=== PATIENT | female | born 1990 | race Caucasian/White ===

== ENCOUNTER 2023-11-14 11:39 | Outpatient (CLI) | payer OTHER, SELFPAY ==
--- OUTSIDE RECORDS SUMMARY | 2023-11-14 11:44 | XMS_ITS | Clinical Summary ---
Author Organization [facility] Address [place], [place] [address] Care Team Providers Care Service Trainer Name Role Phone Winsome Mcmahon DO Primary Care Provider [phone] Allergies Active Allergy Reactions Criticality Noted Date Comments Adhesive Tape-Silicones Rash 08/17/2023 Penicillin V Potassium Hives 09/02/2022 Medications Medication Sig Dispensed Refills Start Date End Date Status vitamin D3-vitamin K2 1,250-200 mcg cap 1 tab(s) orally once a day Active lactobacillus combination no.4 (Probiotic) 3 billion cell cap Take by mouth. Active Active Problems Problem Noted Date Diagnosed Date Anxiety 09/02/2022 Chronic fatigue 09/02/2022 Vitamin D deficiency 09/02/2022 Autism 09/02/2022 Encounters Date Type Department Care Team Description 11/07/2023 Telephone [facility] [address] [place] [address] Winsome Mcmahon DO Referral (Psychiatry ) 09/05/2023 9:49 AM CDT - 09/05/2023 11:59 PM CDT Hospital Encounter [address] [place] [id number] Winsome Mcmahon DO Liver hemangioma 09/05/2023 Travel 08/23/2023 1:30 PM CDT Office Visit [facility] [address] [place] [address] Winsome Mcmahon DO Back Pain (right sided/lateral back pain); Follow Up (urgent care on 08/16, found to have ovarian cyst. Liver US f/u recommended due to Probable cavernous hemangioma in abd CT) 08/23/2023 Travel 08/17/2023 4:00 PM CDT Ancillary Procedure [facility] [address] [place] [address] 08/17/2023 1:50 PM CDT Ancillary Procedure [facility] [address] [place] [address] 08/17/2023 12:10 PM CDT Office Visit [facility] [place] [place] [phone] [place] Abdominal Pain (2 1/2 week history of right sided flank pain/lateral back pain. Onset yesterday of nausea. Onset today of lower abdomen cramping and sharp pain. Back pain has improved; nausea has resolved. Denies fever, epigastric discomfort. Last BM today.) 08/17/2023 Travel from Last 3 Months Social History Tobacco Use Types Packs/Day Years Used Date Smoking Tobacco: Never Passive Smoke Exposure: Never Smokeless Tobacco: Never Tobacco Cessation:Counseling Given: Not Answered Alcohol Use Standard Drinks/Week Comments Yes 0 (1 standard drink = 0.6 oz pur e alcohol) occasional PHQ-2 Answer Date Recorded PHQ-2 TOTAL SCORE 3 11/07/2023 Social Connections Answer Date Recorded Frequency of Communication with Friends and Fami ly 0 08/23/2023 Financial Resource Strain Answer Date R ecorded Difficulty of Paying Living Expenses 3 08/23/2023 Difficulty of Paying Living Expenses Not on file 08/23/2023 Food Insecurity Answer Date Recorded Worried About Running Out of Food in the Last Ye ar 1 08/23/2023 Transportation Needs Answer Date Record ed Lack of Transportation (Medical) 1 08/23/2023 Housing Stability Answer Date Recorded Unable to Pay for Housing in the Last Year 1 08/23/2023 Sex and Gender Information Value Date Recorded Sex Assigned at Not on file Gender Identity Not on file Sexual Orientation Not on file Obstetrics History Para Term AB IAB SAB Ectopic Multiple Livin g Live Births 0 0 0 0 0 0 0 0 0 0 0 Last Filed Vital Signs Vital Sign Reading Time Taken Comments Blood Pressure 108/62 08/23/2023 1:33 PM CDT Pulse 80 08/23/2023 1:33 PM CDT Temperature 36.7 ??C (98.1 ??F) 08/17/2023 12:24 PM C DT Respiratory Rate 20 08/17/2023 12:24 PM CDT Oxygen Saturation 99% 08/23/2023 1:33 PM CDT Inhaled Oxygen Concentration - - Weight 59.5 kg (131 lb 3.2 oz) 08/23/2023 1:33 P M CDT Height 165.9 cm (5' 5.32) 09/02/2022 8:54 AM CD T Body Mass Index 21.62 09/02/2022 8:54 AM CDT Plan of Treatment Upcoming Encounters Date Type Department Care Team (Late st Contact Info) Description 12/12/2023 8:30 AM CDT Office Visit [facility] [address] [place] [phone] Vikki Renteria, [employer] [address] [place] [phone] Health Maintenance Due Date Last Done Comments Tdap 11/20/2003 HIV for age 15-65 11/20/2007 Hepatitis C screening for ag e 18-79 2010 Tetanus booster 2012 Pap test for age 21-65 2013 BMI (ht and wt on same day) for age 18+ 09/03/2023 09/02/2022 Influenza for age 9-49 11/05/2023 Depression screening for age 12+ 11/06/2024 11/07/2023 COVID-19 vaccine series Completed 02/14/20 23, 06/11/2020, 05/21/2020 Pneumococcal series for age 6-64 Aged Out No longer eligible b ased on patient's age to complete this topic Procedures Procedure Name Priority Date/Time Associated Diagnosis Comments US ABDOMEN LIMITED LIVER Routine 09/05/2023 10:37 AM CDT Liver hemangioma SOYBEAN (F14) IGE Routine 08/23/2023 2:1 1 PM CDT Abdominal pain, generalized Chronic diarrhea SHRIMP (F24) IGE Routine 08/23/2023 2:11 PM CDT Abdominal pain, generalized Chronic diarrhea US PELVIS COMPLETE TA AND TV STAT 08/17/2023 3:09 PM CDT Lower abdominal pain CT ABDOMEN PELVIS W STAT 08/17/2023 2 :10 PM CDT Lower abdominal pain ISTAT CHEM 8 STAT 08/17/2023 1:36 PM CDT Cyst of right ovary URINE STAT 08/17/2023 1:33 PM CDT Cyst of right ovary UA W/ SEDIMENT EXAM REFLEXED PER CRITERIA STAT 08/17/2023 1:33 PM CDT Cyst of right ovary CBC WITH AUTO DIFFERENTIAL STAT 08/17/2023 1:32 PM CDT Cyst of right ovary CBC WITH AUTO DIFFERENTIAL STAT 08/17/2023 1:32 PM CDT Cyst of right ovary from Last 3 Months Results * US ABDOMEN LIMITED LIVER (09/05/2023 10:37 AM CDT) Anatomical Region Laterality Modality LIVER Ultrasound 09/05/2023 10:3 7 AM CDT Impressions 09/05/2023 10:48 AM CDT 1. ??Two homogeneous hyperechoic lesions within the liver with an imaging appearance suggestive of benign hemangioma, similar to the recent CT. No suspicious hepatic lesion is seen. Follow-up limited abdominal ultrasound in 6 months could be considered although likely benign given the appearance. Narrative 09/05/2023 10:48 AM CDT For Patients: As a result of the Century Cures Act, medical imaging exams and procedure reports are released immediately into your electronic medical record. You may view this report before your referring provider. If you have questions, please contact your health care provider. EXAM: US ABDOMEN LIMITED LIVER LOCATION: [facility] DATE: 09/05/2023 INDICATION: Indeterminate liver lesions. COMPARISON: CT of the abdomen 08/17/2023. TECHNIQUE: Limited abdominal ultrasound. FINDINGS: GALLBLADDER: Normal. No gallstones, wall thickening, or pericholecystic fluid. Negative sonographic Townsend's sign. BILE DUCTS: No biliary dilatation. The common duct measures 3 mm. LIVER: No suspicious hepatic lesion. Homogeneous hyperechoic focus in the right hepatic lobe laterally measuring 2.1 x 1.9 x 1.4 cm and, consistent with angioma. Similar homogeneous echogenic focus left hepatic lobe measuring 1.4 x 1.4 x 1.4 cm, likely an additional hemangioma. Normal hepatopedal directional flow in the main portal vein. SPLEEN: Normal spleen measuring 9.3 cm. No ascites. Procedure Note Matthew Neal MD - 09/05/2023 For Patients: As a result of the Century Cures Act, medical imagingexams and procedure reports are released immediately into your electronicmedical record. You may view this report before your referring provider.If you have questions, please contact your health care provider. EXAM: US ABDOMEN LIMITED LIVER LOCATION: [facility] DATE: 09/05/2023 INDICATION: Indeterminate liver lesions. COMPARISON: CT of the abdomen 08/17/2023. TECHNIQUE: Limited abdominal ultrasound. FINDINGS: GALLBLADDER: Normal. No gallstones, wall thickening, or pericholecysticfluid. Negative sonographic Townsend's sign. BILE DUCTS: No biliary dilatation. The common duct measures 3 mm. LIVER: No suspicious hepatic lesion. Homogeneous hyperechoic focus in theright hepatic lobe laterally measuring 2.1 x 1.9 x 1.4 cm and, consistentwith angioma. Similar homogeneous echogenic focus left hepatic lobemeasuring 1.4 x 1.4 x 1.4 cm, likely an additional hemangioma. Normalhepatopedal directional flow in the main portal vein. SPLEEN: Normal spleen measuring 9.3 cm. No ascites. IMPRESSION: 1. Two homogeneous hyperechoic lesions within the liver with an imagingappearance suggestive of benign hemangioma, similar to the recent CT. Nosuspicious hepatic lesion is seen. Follow-up limited abdominal ultrasoundin 6 months could be considered although likely benign given theappearance. Winsome Mcmahon DO US * SHRIMP (F24) IGE (08/23/2023 2:11 PM CDT) SHRIMP (F24) IGE <0.10 <=0.35 kU/L 08/24/2023 2:07 PM CDT [facility] Blood BLOOD SPECIMEN / Unknown Venipuncture / Unknown 08/23/2023 2:11 PM CDT 08/23/2023 2:12 PM CDT Winsome Mcmahon DO SEND OUTS Performing Organization Address [facility]/ZIP Co de Phone Number [facility] [address] [place] [id number], [place] * SOYBEAN (F14) IGE (08/23/2023 2:11 PM CDT) Pathologist [facility] SOYBEAN (F14) IGE <0.10 <=0.35 kU/L 08/24/2023 2:07 PM CDT [facility] Blood BLOOD SPECIMEN / Unknown Venipuncture / Unknown 08/23/2023 2:11 PM CDT 08/23/2023 2:12 PM CDT Winsome Mcmahon DO SEND OUTS Performing Organization Address [facility] Co de Phone Number [facility] [address] [address], [place] * US PELVIS COMPLETE TA AND TV (08/17/2023 3:09 PM CDT) Anatomical Region Laterality Modality Pelvis Ultrasound 08/17/2023 3:09 PM CDT Impressions 08/17/2023 3:12 PM CDT 1. ??Normal pelvic ultrasound. Incidental benign dominant follicle or functional cyst in the right ovary measuring 2.3 cm. Narrative 08/17/2023 3:12 PM CDT For Patients: As a result of the Century Cures Act, medical imaging exams and procedure reports are released immediately into your electronic medical record. You may view this report before your referring provider. If you have questions, please contact your health care provider. EXAM: US PELVIS COMPLETE TA AND TV LOCATION: [facility] DATE: 08/17/2023 INDICATION: Lower Abdominal Pain COMPARISON: CT of the abdomen pelvis 08/17/2023 TECHNIQUE: Transabdominal scans were performed. Endovaginal ultrasound was performed to better visualize the adnexa. FINDINGS: UTERUS: 8.5 x 2.7 x 4.1 cm. Normal in size and position with no masses. ENDOMETRIUM: 12 mm. Normal smooth endometrium. RIGHT OVARY: 4.4 x 3.1 x 2.7 cm. Normal with flow demonstrated in normal arterial duplex waveforms. Dominant follicle measures 2.2 cm and is anechoic and benign. LEFT OVARY: 1.8 x 1.8 x 2.3 cm. Normal with flow demonstrated and normal arterial duplex waveforms. No adnexal mass or significant pelvic fluid collection is seen. Procedure Note Matthew Neal MD - 08/17/2023 For Patients: As a result of the Cures Act, medical imagingexams and procedure reports are released immediately into your electronicmedical record. You may view this report before your referring provider.If you have questions, please contact your health care provider. EXAM: US PELVIS COMPLETE TA AND TV LOCATION: [facility] DATE: 08/17/2023 INDICATION: Lower Abdominal Pain COMPARISON: CT of the abdomen pelvis 08/17/2023 TECHNIQUE: Transabdominal scans were performed. Endovaginal ultrasound wasperformed to better visualize the adnexa. FINDINGS: UTERUS: 8.5 x 2.7 x 4.1 cm. Normal in size and position with no masses. ENDOMETRIUM: 12 mm. Normal smooth endometrium. RIGHT OVARY: 4.4 x 3.1 x 2.7 cm. Normal with flow demonstrated in normalarterial duplex waveforms. Dominant follicle measures 2.2 cm and isanechoic and benign. LEFT OVARY: 1.8 x 1.8 x 2.3 cm. Normal with flow demonstrated and normalarterial duplex waveforms. No adnexal mass or significant pelvic fluid collection is seen. IMPRESSION: 1. Normal pelvic ultrasound. Incidental benign dominant follicle orfunctional cyst in the right ovary measuring 2.3 cm. Mt [facility] US * CT ABDOMEN PELVIS W (08/17/2023 2:10 PM CDT) Anatomical Region Laterality Modality Abdomen, Pelvis, AORTA, LIVER, SPLEEN Computed Tomography 08/17/2023 2:10 PM CDT Impressions 08/17/2023 2:21 PM CDT 1. ??Right ovarian low-density lesion with mild heterogeneous internal density suggesting possible hemorrhagic cyst. Pelvic ultrasound is recommended for further characterization. 2. ??Probable cavernous hemangioma in the inferior right hepatic lobe. Nonemergent liver ultrasound is recommended for confirmation. US Pelvis < 1 Month, US Liver < 1 Month Narrative 08/17/2023 2:21 PM CDT For Patients: As a result of the Cures Act, medical imaging exams and procedure reports are released immediately into your electronic medical record. You may view this report before your referring provider. If you have questions, please contact your health care provider. EXAM: CT ABDOMEN PELVIS W LOCATION: [facility] DATE: 08/17/2023 INDICATION: Lower Abdominal Pain COMPARISON: None. TECHNIQUE: CT scan of the abdomen and pelvis was performed following injection of IV contrast. Multiplanar reformats were obtained. Dose reduction techniques were used. CONTRAST: Omnipaque 350 80ML FINDINGS: LOWER CHEST: Normal. HEPATOBILIARY: Low-density lesion in the inferior right hepatic lobe measuring 1.9 x 1.8 cm with discontinuous peripheral nodular enhancement, probable cavernous hemangioma (series 2, image 43). Additional low-density cyst or hemangioma in the left hepatic lobe anteriorly measuring 1.5 x 0.9 cm (series 2, image 25). No calcified gallstones or biliary dilatation. PANCREAS: Normal. SPLEEN: Normal. ADRENAL GLANDS: Normal. KIDNEYS/BLADDER: Right renal cyst warranting no dedicated follow-up. No urinary calculi or hydronephrosis. BOWEL: No obstruction or inflammatory change. Normal appendix. LYMPH NODES: Normal. VASCULATURE: Pelvic phleboliths. PELVIC ORGANS: Right ovarian low-density lesion with mild internal heterogeneity measuring 1.9 cm (series 2, image 103). MUSCULOSKELETAL: Normal. Procedure Note Tavo Seymour MD - 08/17/2023 For Patients: As a result of the Cures Act, medical imagingexams and procedure reports are released immediately into your electronicmedical record. You may view this report before your referring provider.If you have questions, please contact your health care provider. EXAM: CT ABDOMEN PELVIS W LOCATION: [facility] DATE: 08/17/2023 INDICATION: Lower Abdominal Pain COMPARISON: None. TECHNIQUE: CT scan of the abdomen and pelvis was performed followinginjection of IV contrast. Multiplanar reformats were obtained. Dosereduction techniques were used. CONTRAST: Omnipaque 350 80ML FINDINGS: LOWER CHEST: Normal. HEPATOBILIARY: Low-density lesion in the inferior right hepatic lobemeasuring 1.9 x 1.8 cm with discontinuous peripheral nodular enhancement,probable cavernous hemangioma (series 2, image 43). Additional low-densitycyst or hemangioma in the left hepatic lobe anteriorly measuring 1.5 x 0.9cm (series 2, image 25). No calcified gallstones or biliary dilatation. PANCREAS: Normal. SPLEEN: Normal. ADRENAL GLANDS: Normal. KIDNEYS/BLADDER: Right renal cyst warranting no dedicated follow-up. Nourinary calculi or hydronephrosis. BOWEL: No obstruction or inflammatory change. Normal appendix. LYMPH NODES: Normal. VASCULATURE: Pelvic phleboliths. PELVIC ORGANS: Right ovarian low-density lesion with mild internalheterogeneity measuring 1.9 cm (series 2, image 103). MUSCULOSKELETAL: Normal. IMPRESSION: 1. Right ovarian low-density lesion with mild heterogeneous internaldensity suggesting possible hemorrhagic cyst. Pelvic ultrasound isrecommended for further characterization. 2. Probable cavernous hemangioma in the inferior right hepatic lobe.Nonemergent liver ultrasound is recommended for confirmation. US Pelvis < 1 Month, US Liver < [address] * ISTAT CHEM 8 (SELECTED SITES ONLY) (08/17/2023 1:36 PM CDT) [facility] SODIUM, POCT 138 135 - 145 mmol/L 08/17/2023 1:42 PM CDT [facility] POTASSIUM, POCT 3.6 3.5 - 5.0 mmol/L 08/17/2023 1:42 PM CDT [facility] CHLORIDE, POCT 100 98 - 107 mmol/L 08/17/2023 1:42 PM CDT [facility] CO2,TOTAL, POCT 26 21 - 31 mmol/L 08/17/2023 1:42 PM CDT [facility] ANION GAP, POCT 16 5 - 18 1:42 PM CDT [facility] GLUCOSE, POCT 98 70 - 99 mg/dL 08/17/2023 1:42 PM CDT [facility] IONIZED CALCIUM, POCT 1.21 1.15 - 1.27 mmol/L 08/17/2023 1:42 PM CDT [facility] BUN, POCT 10 8 - 25 mg/dL 08/17/2023 1:42 PM CDT [facility] CREATININE, POCT 0.70 0.57 - 1.11 mg/dL 08/17/2023 1:42 PM CDT [facility] BUN/CREAT RATIO, POCT 14 10 - 20 08/17/2023 1:42 PM CDT [facility] eGFR >90 >90 mL/min/1.7 3m2 08/17/2023 1:42 PM CDT [facility] Comment:As of 2021, eG FR is calculated by the CKD-EPI creatinine equation without race adjustment. eGFR can be influenced by muscle mass, exercise, and diet. The reported eGFR is an estimation only and is only applicable if the renal function is stable. Blood BLOOD SPECIMEN / Unknown 08/17/2023 1:36 PM CDT 08/17/2023 1:41 PM CDT [facility] CHEMISTRY [place] [id number] [place] [address], * (ABNORMAL) UA W/ SEDIMENT EXAM REFLEXED PER CRITERIA (08/17/2023 1:33 PM CDT) COLOR Yellow Yellow Color 08/17/2023 1:37 PM CDT [facility] CLARITY Clear Clear Clarity 08/17/2023 1:37 PM CDT [facility] SPECIFIC GRAVITY,URINE <=1.005(A) 1.010, 1.015, 1.020, 1.025 08/17/2023 1:37 PM CDT [facility] PH,URINE 7.0 6.0, 7.0, 8.0, 5.5, 6.5, 7.5, 8.5 08/17/2023 1:37 PM CDT [facility] UROBILINOGEN, QUALITATIVE Normal Normal EU/dl 08/17/2023 1:37 PM CDT [facility] PROTEIN, URINE Negative Negative mg/dL 08/17/2023 1:37 PM CDT [facility] GLUCOSE, URINE Negative Negative mg/dL 08/17/2023 1:37 PM CDT [facility] KETONES,URINE Negative Negative mg/dL 08/17/2023 1:37 PM CDT [facility] BILIRUBIN,URI NE Negative Negative 08/17/2023 1:37 PM CDT [facility] OCCULT BLOOD,URINE Negative Negative 08/17/2023 1:37 PM CDT [facility] NITRITE Negative Negative 08/17/2023 1:37 PM CDT [facility] LEUKOCYTE ESTERASE Negative Negative 08/17/2023 1:37 PM CDT [facility] Urine URINE SPECIMEN / Unknown Non-Blood / Unknown 08/17/2023 1:33 PM CDT 08/17/2023 1:33 PM CDT [facility] URINE Performing Organization Address City/[facility]/ZIP Co de Phone Number [address] [place] [address], [place] [phone] * URINE (08/17/2023 1:33 PM CDT) ,URIN E Negative Negative 08/17/2023 1:37 PM CDT [facility] Urine URINE SPECIMEN / Unknown Non-Blood / Unknown 08/17/2023 1:33 PM CDT 08/17/2023 1:33 PM CDT Mt [facility] URINE Performing Organization Address City/[facility]/ZIP Co de Phone Number [address] [address], [place] [phone] * CBC WITH AUTO DIFFERENTIAL (08/17/2023 1:32 PM CDT) WHITE BLOOD COUNT 6.8 4.5 - 11.0 thou/cu mm 08/17/2023 1:36 PM CDT [facility] RED BLOOD COUNT 4.51 4.00 - 5.20 mil/cu mm 08/17/2023 1:36 PM CDT [facility] HEMOGLOBIN 13.7 12.0 - 16.0 g/dL 08/17/2023 1:36 PM CDT [facility] HEMATOCRIT 40.8 33.0 - 51.0 % 08/17/2023 1:36 PM CDT [facility] MCV 91 80 - 100 fL 08/17/2023 1:36 PM CDT [facility] MCH 30.4 26.0 - 34.0 pg 08/17/2023 1:36 PM CDT [facility] MCHC 33.6 32.0 - 36.0 g/dL 08/17/2023 1:36 PM CDT [facility] RDW 11.7 11.5 - 15.5 % 08/17/2023 1:36 PM CDT [facility] PLATELET COUNT 345 140 - 440 thou/cu mm 08/17/2023 1:36 PM CDT [facility] MPV 9.8 6.5 - 11.0 fL 08/17/2023 1:36 PM CDT [facility] % NEUT 65.1 % 08/17/2023 1:36 PM CDT [facility] % LYMPH 27.4 % 08/17/2023 1:36 PM CDT [facility] % MONO 6.5 % 08/17/2023 1:36 PM CDT [facility] % EOS 0.6 % 08/17/2023 1:36 PM CDT [facility] % BASO 0.4 % 08/17/2023 1:36 PM CDT [facility] ABSOLUTE NEUTROPHILS 4.4 1.7 - 7.0 thou/cu mm 08/17/2023 1:36 PM CDT [facility] ABSOLUTE LYMPHOCYTES 1.9 0.9 - 2.9 thou/cu mm 08/17/2023 1:36 PM CDT [facility] ABSOLUTE MONOCYTES 0.4 <0.9 thou/cu mm 08/17/2023 1:36 PM CDT [facility] ABSOLUTE EOSINOPHILS 0.0 <0.5 thou/cu mm 08/17/2023 1:36 PM CDT [facility] ABSOLUTE BASOPHILS 0.0 <0.3 thou/cu mm 08/17/2023 1:36 PM CDT [facility] Blood BLOOD SPECIMEN / Unknown Non-Lab Venipuncture / Unknown 08/17/2023 1:32 PM CDT 08/17/2023 1:32 PM CDT [facility] HEMATOLOGY Performing Organization Address [facility]/State/ZIP Co de Phone Number [facility] [address] [place] [address], from Last 3 Months Care Teams Service Trainer Relationship Specialty Start Date End Date Winsome Mcmahon DO [address] [place] [address] PCP - General Family Practice 09/02/22
--- OUTSIDE RECORDS SUMMARY | 2023-11-14 11:44 | XMS_ITS | Patient Health Record ---
Author Organization [facility] Address [address] [place] [address] Care Team Providers Care Cro Name Role Phone Rubia Hines Primary Care Provider [phone] Allergies Allergen (clinical drug ingredient) Drug/Non Drug Allergy documented on EMR Reaction Allergy Type Onset Date Status Penicillin Unknown Drug Allergy Active Reason For Referral No Information Medications Medication SIG (Take, Route, Frequency, Duration) Notes Start Date End Date Status Probiotic Active Ibuprofen PRN Active Social History Tobacco Use: Social History Observation Description Date Details (start date - stop date) Never Smoker NA - NA Tobacco Use/Smoking Question Answer Notes Are you a nonsmoker Problems Problem Type SNOMED Code ICD Code Onset Dates Problem Status W/U Status Risk Notes Problem [id number] Dysmenorrhea (N94.6) Active confirmed Problem Malignant tumor of ovary (131311885) 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
--- OUTSIDE RECORDS SUMMARY | 2023-11-14 11:44 | XMS_ITS | Patient Health Record ---
Author Organization [facility] Address [address] [id number] Care Team Providers Care Photographic Developer And Printer Name Role Phone SELECT, PROVIDER Primary Care Provider Unavailab le Allergies Allergen (clinical drug ingredient) Drug/Non Drug Allergy documented on EMR Reaction Allergy Type Onset Date Status penicillin V Penicillin V Potassium hives Drug Allergy Active Reason For Referral No Information Medications Medication SIG (Take, Route, Frequency, Duration) Notes Start Date End Date Status Vitamin D3 25 MCG (1000 UT) 1 tab(s) ora lly once a day Active Escitalopram Oxalate 10 MG 1 tab(s) oral ly once a day 10/01/2018 Active Immunizations Vaccine Route Administration Date Status Comme nts DTaP (2 mos through 6 yrs) Unknown 01/20/1993 Administe red DTaP (2 mos through 6 yrs) Unknown 03/19/1993 Administe red DTaP (2 mos through 6 yrs) Unknown 05/14/1993 Administe red DTaP (2 mos through 6 yrs) Unknown 05/31/1994 Administe red Hepatitis B through 19 yrs Unknown 1992 Administered Hepatitis B through 19 yrs Unknown 1992 Administered Hepatitis B through 19 yrs Unknown 05/14/1993 Administered Hib Unknown 01/20/1993 Administered Hib Unknown 03/19/1993 Administered Hib Unknown 05/14/1993 Administered Hib Unknown 05/31/1994 Administered Influenza 6 months and older WITH Preservative Unknown 12/04/2018 Administered Polio (History Only) Unknown 01/20/1993 Administered Polio (History Only) Unknown 03/19/1993 Administered Polio (History Only) Unknown 05/14/1993 Administered Polio (History Only) Unknown 11/07/1997 Administered Tdap (Boostrix 7 years & older ) IM Intramuscular 09/27/2017 Administered Varicella Unknown 01/22/1998 Administered Social History Tobacco Use: Social History Observation Description Date Details (start date - stop date) Never Smoker NA - NA Alcohol Screen Question Answer Notes Did you have a drink contain ing alcohol in the past year? Yes How often did you have a dri nk containing alcohol in the past year? Monthly or less (1 point) How many drinks did you have on a typical day when you were drinking in the past year? 1 or 2 (0 points) How often did you have six o r more drinks on one occasion in the past year? Never (0 points) Points 1 Interpretation Negative Tobacco Status Question Answer Notes I am: never smoker Problems Problem Type SNOMED Code ICD Code Onset Dates Problem Status W/U Status Risk Notes Problem 84305224 Anxiety (F41.9) Active confirmed Problem 698367672 Low back pain (M54.5) Active confirmed Problem 82513722 Vitamin D deficiency (E55.9) Active confirmed Problem 90202082 Other chronic pain (G89.29) Active confirmed Problem 01780766 Chronic fatigue (R53.82) Active confirmed Plan Of Treatment No Information Insurance Providers Payer Name Payer Address Payer Phone Subscriber Number Group Number Insured Name Patient Relationship to Insured Coverage Start Date Coverage End Date [employer] [address] [place] [phone] [id number] Hilda Leon Self - patient is the insured 7 Medical (General) History Medical History History ICD Code Depression/Anxiety (in remission) Surgical History Surgery Date(Month/Year) Adnoids removed 1997
--- NOTE | 2023-11-14 12:00 | CRLHL7_ITS ---
For Patients: As a result of the Century Cures Act, medical imaging exams and procedure reports are released immediately into your electronic medical record. You may view this report before your referring provider. If you have questions, please contact your health care provider. Indication: Abdominal pain Technique: Nuclear medicine hepatobiliary scan with gallbladder ejection fraction after the intravenous administration of 5.2 millicuries technetium 99 M Mebrofenin and 1.2 micrograms of CCK. Comparison: None Findings: Normal hepatic extraction and excretion of the radiopharmaceutical with prompt appearance of the common bile duct followed by the gallbladder and small bowel. There is no enterogastric reflux. Visually normal gallbladder contraction is identified. Calculated gallbladder ejection fraction is 76 percent. Impression: Normal study. Dictated by José Luis Cabezas MD @ 11/14/2023 2:16:50 PM (Electronically Signed)
== END 2023-11-14 11:40 | disposition home or self-care (01) ==
DX: R10.9 Unspecified abdominal pain (principal); E74.10 Disorder of fructose metabolism, unspecified; R19.7 Diarrhea, unspecified; M54.9 Dorsalgia, unspecified
CPT/HCPCS: 78227; A9537; J2805

== ENCOUNTER 2023-11-27 08:54 | Emergency (ER) | payer OTHER, SELFPAY ==
[2023-11-27 09:08] VITALS: BP 118/80; PULSE 62; RESP 18; TEMP 36.8; O2SAT 98; BMI 20.5
--- NOTE | 2023-11-27 09:46 | ED_ITS ---
HPI - Wound/Laceration General Chief Complaint: Laceration/Wound Stated Complaint: cut 2 fingers on right hand Time Seen by Provider: 11/27/23 09:31 Source: patient Mode of arrival: ambulatory Limitations: no limitations History of Present Illness HPI narrative: Patient is a 33-year-old female presenting to the emergency department for lacerations to her right 2nd and 3rd digits near the fingernail but not involv ing the fingernail. States this morning she accidentally cut herself on a can that was in the sink. States her last tetanus was 2018. States she is having difficulty getting the bleeding under control so came in to be evaluated. No other concerns noted. Related Data Previous Rx's ?Medication ?Instructions ?Recorded ondansetron 4 mg disintegrating 4 mg PO Q8H PRN nausea and 05/02/23 tablet vomiting #10 tabs Allergies Allergy/AdvReac Type Severity Reaction Status Date / Time Penicillins Allergy Unknown Rash Verified 11/27/23 09:12 adhesives Allergy Mild rash on Uncoded 11/27/23 09:12 skin Review of Systems Narrative: Pertinent systems reviewed and were negative unless stated in HPI PFSH PFSH Social History Smoking Status: Never smoker Do you use any of these nicotine containing products: None How often do you have a drink containing alcohol: monthly or less How often do you have six or more drinks on one occasion: Less than monthly AUDIT-C Alcohol total score: 2 Non-prescribed substance use: denies use Exam Narrative: Exam Narrative: Const: Well-nourished, Well-developed, in no distress Eyes: PERRL, no conjunctival injection, and symmetrical lids HENT: Atraumatic external nose and ears. Moist mucous membranes. Removed MSK:Extremities w/o deformity, Normal Active ROM Skin: Warm, Dry. Lacerations noted to the distal phalanx of the 2nd and 3rd digits. Laceration of the 2nd digit is right next to the nail and is about half a cm in length. Laceration to the 3rd digit this is similar location is about 0.75 cm in length. Neuro: Normal Muscle tone, No focal neurological deficits. Psych: Awake, Alert, & Oriented x3. Appropriate mood and affect. Const: Vital Signs, click to edit/add: Vital Signs - 24 hr 11/27/23 09:08 Temperature 98.3 F Pulse Rate [Pulse Oximeter] 62 Respiratory Rate 18 Blood Pressure [Le ft Upper Arm] 118/80 Pulse Oximetry 98 Oxygen Delivery Me thod Room Air Course Vital Signs Vital signs: Initial Vital Signs Temperature 98.3 F 11/27/23 09:08 Temperature Source Temporal Artery Scan 11/27/23 09:08 Pulse Rate 62 11/27/23 09:08 Respiratory Rate 18 11/27/23 09:08 Blood Pressure 118/80 11/27/23 09:08 Blood Pressure Mean 92 11/27/23 09:08 Pulse Oximetry 98 11/27/23 09:08 Oxygen Delivery Method Room Air 11/27/23 09:08 Vital Signs Temperature 98.3 F 11/27/23 09:08 Pulse Rate 62 11/27/23 09:08 Respiratory Rate 18 11/27/23 09:08 Blood Pressure 118/80 11/27/23 09:08 Pulse Oximetry 98 11/27/23 09:08 Oxygen Delivery Method Room Air 11/27/23 09:08 Temperature 98.3 F 11/27/23 09:08 Pulse Rate 62 11/27/23 09:08 Respiratory Rate 18 11/27/23 09:08 Blood Pressure 118/80 11/27/23 09:08 Pulse Oximetry 98 11/27/23 09:08 Oxygen Delivery Method Room Air 11/27/23 09:08 Medications Administered Medications: Generic Name Dose Route Start Last Admin Trade Name Freq PRN Reason Stop Dose Admin Lidocaine HCl 30 ml 11/27/23 09:09 11/27/23 09:55 Lidocaine 1 % Pf 30 Ml INJECTION 30 ml ONCE PRN Administration MDM - Wound/Laceration MDM Narrative Medical decision making narrative: Patient's mother 3-year-old female presenting for laceration to her 2nd 3rd fingers. Both lacerations were near the nail but did not involve the nail bed. The suturing was done. See procedure note. She tolerated the procedure well. No other concerns noted. Discharge Plan Discharge Clinical Impression: Laceration Patient Disposition: Home, Self-Care Condition: Stable Instructions: Finger Laceration (ED) Additional Instructions: Follow-up with your primary care provider or urgent care in the next 7 days to have the 6 sutures removed. For next 6 months, once sutures are removed, whenever you go outside put a dab of sunscreen over the laceration site to improve scar appearance. Topical antibiotics are not necessary at this time. Patient can shower but do not submerge the laceration until sutures are removed Prescriptions: No Action ondansetron 4 mg tablet,disintegrating 4 mg PO Q8H PRN (Reason: nausea and vomiting) Qty: 10 0RF Follow Up/Referrals: Provider,Not a Local [Primary Care Provider] - Stand Alone Forms: [facility] Info Instructions Procedures Laceration right 2nd finger: Name of person performing procedure: dEgardo Ramsay Site: hand (2nd finger) Side (If applicable): right Size (cm): 0.5 Description: linear and clean Depth: simple, single layer Local Anesthetic: lidocaine 1% (Digital nerve block) Amount of anesthesia used (mL): 2 Pre-repair: wound explored, irrigated extensively and deep structures intact Skin layer closed with: nylon Size (cm): 5-0 Number of sutures: 3 Technique: simple, interrupted Right 3rd finger: Name of person performing procedure: Edgardo P Devendra Site: hand (3rd finger) Side (If applicable): right Size (cm): 0.75 Description: linear and clean Depth: simple, single layer Local Anesthetic: lidocaine 1% (Digital nerve block) Amount of anesthesia used (mL): 2 Pre-repair: wound explored, irrigated extensively and deep structures intact Skin layer closed with: nylon Size (cm): 5-0 Number of sutures: 3 Technique: simple, interrupted
--- OUTSIDE RECORDS SUMMARY | 2023-11-27 09:53 | XMS_ITS | Patient Health Record ---
Author Organization [facility] Address [address] [place] [address] Care Team Providers Care Car Hostler Name Role Phone Rubia Hines Primary Care Provider Allergies Allergen (clinical drug ingredient) Drug/Non Drug [...] Problem Status W/U Status Risk Notes Problem 406907979 Dysmenorrhea (N94.6) Active confirmed Problem Malignant tumor of ovary (445141064) Ovarian cancer on right (C56.1) Active confirmed Plan Of Treatment No Information Insurance Providers Payer Name Payer Address Payer Phone Subscriber Number Group Number Insured Name Patient Relationship to Insured Coverage Start Date Coverage End Date [employer] [address] [place] [id number] Hilda Leon Self - patient is the insured Medical (General) History Surgical History Surgery Date(Month/Year) Adenoidectomy Fil[place] teeth Removal
--- OUTSIDE RECORDS SUMMARY | 2023-11-27 09:53 | XMS_ITS | Clinical Summary ---
Author Organization [facility] Address [place], [place] [address] Care Team Providers Care Horse Racing Manager Name Role Phone Winsome Mcmahon DO Primary Care Provider [phone] Allergies Active Allergy Reactions Criticality Noted Date [...] Type Department Care Team Description 11/07/2023 Telephone [facility] [address] [place] [address] Winsome Mcmahon DO Referral (Psychiatry ) 09/05/2023 9:49 AM CDT - 09/05/2023 11:59 PM CDT Hospital Encounter [facility] [place] [address] [place] [address] Winsome Mcmahon DO Liver hemangioma 09/05/2023 Travel from Last 3 Months Social History [...] Description 12/12/2023 8:30 AM CDT Office Visit [facility] [address] [place] [id number] Vikki Renteria, MINING ENGINEER [address] [place] [phone] Health Maintenance Due Date Last Done Comments Tdap 11/20/2003 HIV for age 15-65 11/20/2007 Hepatitis C screening for ag e 18-79 2010 Tetanus booster 2012 Pap test for age 21-65 2013 BMI (ht and wt on same day) for age 18+ 09/03/2023 09/02/2022 Influenza for age 9-49 11/05/2023 Depression screening for age 12+ 11/06/2024 11/07/2023 COVID-19 vaccine series Completed 02/14/20, 06/11/2020, 05/21/2020 Pneumococcal series for age 6-64 Aged Out No longer eligible b ased on patient's age to complete this topic Procedures Procedure Name Priority Date/Time Associated Diagnosis Comments US ABDOMEN LIMITED LIVER Routine 09/05/2023 10:37 AM CDT Liver hemangioma from Last 3 Months Results * US [...] EXAM: US ABDOMEN LIMITED LIVER LOCATION: [facility] DATE: 09/05/2023 INDICATION: Indeterminate liver lesions. COMPARISON: [...] provider. EXAM: US ABDOMEN LIMITED LIVER LOCATION: [facility] DATE: 09/05/2023 INDICATION: Indeterminate liver lesions. [...] benign given theappearance. Winsome Mcmahon DO US from Last 3 Months Care Teams Horse Racing Manager Relationship Specialty Start Date End Date Winsome Mcmahon DO [address] [place], [place] [id number] PCP - General Family Practice 09/02/22
--- OUTSIDE RECORDS SUMMARY | 2023-11-27 09:54 | XMS_ITS | Patient Health Record ---
Author Organization [facility] Address [address] [id number] Care Team Providers Care Director Religious Education Name Role Phone SELECT, PROVIDER Primary Care [...] Problem Status W/U Status Risk Notes Problem 40695434 Anxiety (F41.9) Active confirmed Problem 222475835 Low back pain (M54.5) Active confirmed Problem 06261593 Vitamin D deficiency (E55.9) Active confirmed Problem 91200873 Other chronic pain (G89.29) Active confirmed Problem 47954810 Chronic fatigue (R53.82) Active confirmed Plan Of Treatment No Information Insurance Providers Payer Name Payer Address Payer Phone Subscriber Number Group Number Insured Name Patient Relationship to Insured Coverage Start Date Coverage End Date [employer] [address] [place] [phone] [id number] Hilda Leon Self - patient is the insured 7 Medical (General) History Medical History History ICD Code Depression/Anxiety (in remission) Surgical History Surgery Date(Month/Year) Adnoids removed 1997
[2023-11-27] MEDS: LIDOCAINE 1 % PF 30 ML INJECTION (09:55)
== END 2023-11-27 11:14 | disposition home or self-care (01) ==
PROVIDERS: Emergency Provider Student in an Organized Health Care Education/Training Program
DX: S61.210A Laceration without foreign body of right index finger without damage to nail, initial encounter (principal); S61.212A Laceration without foreign body of right middle finger without damage to nail, initial encounter; W26.9XXA Contact with unspecified sharp object(s), initial encounter
CPT/HCPCS: 12001; 99282; 99283; J2001

== ENCOUNTER 2024-10-19 15:37 | Emergency (ER) | payer OTHER, SELFPAY ==
--- OUTSIDE RECORDS SUMMARY | 2024-09-12 10:00 | XMS_ITS ---
Author Organization [place] [employer] e Address [address] [place] [address] Care Team Providers Care Clinical Research Analyst Name Role Phone Mragaret Hinesi Primary Care Provider Jeremy Anthony Unavailable [phone] None, No PCP Unavailable Unavailable Medications Medication SIG (Take, Route, Frequency, Duration) Notes Start Date End Date Status Ibuprofen PRN Not-Taking clonazePAM 0.5 MG 1 tablet Orally Once a day Active buPROPion HCl 150 MG as directed Orally Active Probiotic Not-Taking Problems Problem Type SNOMED Code ICD Code Onset Dates Problem Status W/U Status Risk Notes Problem Chronic pain (51547081) Other chronic pain (G89.29) Active confirmed Encounters Encounter Location Date Provider Diagnosis [address] [id number] 09/12/2024 eJremy Anthony Pelvic floor dysfunction in female M62.89 ; IRENE (stress urinary incontinence, female) N39.3 ; Other chronic pain G89.29 ; Low back pain, unspecified M54.50 ; Fecal urgency R15.2 ; Fecal smearing R15.1 and Dyspareunia, female N94.10 Assessments Encounter Date Diagnosis (ICD Code) Assessment Notes Treatment Notes Treatment Clinical Notes Section Notes 09/12/2024 Pelvic floor dysfunction in female (ICD-10 - M62.89) The patient tolerated treatment with no adverse effects. She came for an initial PT visit for symptoms of pelvic floor muscle dysfunction related to IRENE, LBP, fecal urgency, fecal incontinence and dyspareunia. The patient was educated on the anatomy, physiology and etiology of the pelvic floor, pelvic organs, nervous system and intraabdominal pressure system and how it all relates to the patient's symptoms to incorporate awareness into her ADLs. Limited objective measures taken today due to increased time taken with subjective information gathering and education on immediate self care strategies for home application of status and symptom management. The patient's course of treatment was explained to her and her goals were set in place. The patient's questions were answered to her satisfaction and she had no questions or concerns at the end of her session. Overall she would greatly benefit from PT to address her current musculoskeletal imbalances so she can return to her PLOF. Further musculoskeletal objective measures will be performed at subsequent visits as indicated. 09/12/2024 IRENE (stress urinary incontinence, female) (ICD-10 - N39.3) The patient tolerated treatment with no adverse effects. She came for an initial PT visit for symptoms of pelvic floor muscle dysfunction related to IRENE, LBP, fecal urgency, fecal incontinence and dyspareunia. The patient was educated on the anatomy, physiology and etiology of the pelvic floor, pelvic organs, nervous system and intraabdominal pressure system and how it all relates to the patient's symptoms to incorporate awareness into her ADLs. Limited objective measures taken today due to increased time taken with subjective information gathering and education on immediate self care strategies for home application of status and symptom management. The patient's course of treatment was explained to her and her goals were set in place. The patient's questions were answered to her satisfaction and she had no questions or concerns at the end of her session. Overall she would greatly benefit from PT to address her current musculoskeletal imbalances so she can return to her PLOF. Further musculoskeletal objective measures will be performed at subsequent visits as indicated. 09/12/2024 Other chronic pain (ICD-10 - G89.29) The patient tolerated treatment with no adverse effects. She came for an initial PT visit for symptoms of pelvic floor muscle dysfunction related to IRENE, LBP, fecal urgency, fecal incontinence and dyspareunia. The patient was educated on the anatomy, physiology and etiology of the pelvic floor, pelvic organs, nervous system and intraabdominal pressure system and how it all relates to the patient's symptoms to incorporate awareness into her ADLs. Limited objective measures taken today due to increased time taken with subjective information gathering and education on immediate self care strategies for home application of status and symptom management. The patient's course of treatment was explained to her and her goals were set in place. The patient's questions were answered to her satisfaction and she had no questions or concerns at the end of her session. Overall she would greatly benefit from PT to address her current musculoskeletal imbalances so she can return to her PLOF. Further musculoskeletal objective measures will be performed at subsequent visits as indicated. 09/12/2024 Low back pain, unspecified (ICD-10 - M54.50) The patient tolerated treatment with no adverse effects. She came for an initial PT visit for symptoms of pelvic floor muscle dysfunction related to IRENE, LBP, fecal urgency, fecal incontinence and dyspareunia. The patient was educated on the anatomy, physiology and etiology of the pelvic floor, pelvic organs, nervous system and intraabdominal pressure system and how it all relates to the patient's symptoms to incorporate awareness into her ADLs. Limited objective measures taken today due to increased time taken with subjective information gathering and education on immediate self care strategies for home application of status and symptom management. The patient's course of treatment was explained to her and her goals were set in place. The patient's questions were answered to her satisfaction and she had no questions or concerns at the end of her session. Overall she would greatly benefit from PT to address her current musculoskeletal imbalances so she can return to her PLOF. Further musculoskeletal objective measures will be performed at subsequent visits as indicated. 09/12/2024 Fecal urgency (ICD-10 - R15.2) The patient tolerated treatment with no adverse effects. She came for an initial PT visit for symptoms of pelvic floor muscle dysfunction related to IRENE, LBP, fecal urgency, fecal incontinence and dyspareunia. The patient was educated on the anatomy, physiology and etiology of the pelvic floor, pelvic organs, nervous system and intraabdominal pressure system and how it all relates to the patient's symptoms to incorporate awareness into her ADLs. Limited objective measures taken today due to increased time taken with subjective information gathering and education on immediate self care strategies for home application of status and symptom management. The patient's course of treatment was explained to her and her goals were set in place. The patient's questions were answered to her satisfaction and she had no questions or concerns at the end of her session. Overall she would greatly benefit from PT to address her current musculoskeletal imbalances so she can return to her PLOF. Further musculoskeletal objective measures will be performed at subsequent visits as indicated. 09/12/2024 Fecal smearing (ICD-10 - R15.1) The patient tolerated treatment with no adverse effects. She came for an initial PT visit for symptoms of pelvic floor muscle dysfunction related to IRENE, LBP, fecal urgency, fecal incontinence and dyspareunia. The patient was educated on the anatomy, physiology and etiology of the pelvic floor, pelvic organs, nervous system and intraabdominal pressure system and how it all relates to the patient's symptoms to incorporate awareness into her ADLs. Limited objective measures taken today due to increased time taken with subjective information gathering and education on immediate self care strategies for home application of status and symptom management. The patient's course of treatment was explained to her and her goals were set in place. The patient's questions were answered to her satisfaction and she had no questions or concerns at the end of her session. Overall she would greatly benefit from PT to address her current musculoskeletal imbalances so she can return to her PLOF. Further musculoskeletal objective measures will be performed at subsequent visits as indicated. 09/12/2024 Dyspareunia, female (ICD-10 - N94.10) The patient tolerated treatment with no adverse effects. She came for an initial PT visit for symptoms of pelvic floor muscle dysfunction related to IRENE, LBP, fecal urgency, fecal incontinence and dyspareunia. The patient was educated on the anatomy, physiology and etiology of the pelvic floor, pelvic organs, nervous system and intraabdominal pressure system and how it all relates to the patient's symptoms to incorporate awareness into her ADLs. Limited objective measures taken today due to increased time taken with subjective information gathering and education on immediate self care strategies for home application of status and symptom management. The patient's course of treatment was explained to her and her goals were set in place. The patient's questions were answered to her satisfaction and she had no questions or concerns at the end of her session. Overall she would greatly benefit from PT to address her current musculoskeletal imbalances so she can return to her PLOF. Further musculoskeletal objective measures will be performed at subsequent visits as indicated. 09/12/2024 Other Treatment Plan: Frequency: weekly or bi weekly Duration: 8-12 visits Planned Interventions: therapeutic exercise, therapeutic activities, self care/home management, manual therapy, neuromuscular reeducation, modalities prn, urostym Plan for next visit: Perform PFM assessment & remaining assessment components with application of HEP as indicated. The patient tolerated treatment with no adverse effects. She came for an initial PT visit for symptoms of pelvic floor muscle dysfunction related to IRENE, LBP, fecal urgency, fecal incontinence and dyspareunia. The patient was educated on the anatomy, physiology and etiology of the pelvic floor, pelvic organs, nervous system and intraabdominal pressure system and how it all relates to the patient's symptoms to incorporate awareness into her ADLs. Limited objective measures taken today due to increased time taken with subjective information gathering and education on immediate self care strategies for home application of status and symptom management. The patient's course of treatment was explained to her and her goals were set in place. The patient's questions were answered to her satisfaction and she had no questions or concerns at the end of her session. Overall she would greatly benefit from PT to address her current musculoskeletal imbalances so she can return to her PLOF. Further musculoskeletal objective measures will be performed at subsequent visits as indicated. Plan Of Treatment Treatment Notes Assessment Notes Other Treatment Plan: Frequency: weekly or bi weekly Duration: 8-12 visits Planned Interventions: therapeutic exercise, therapeutic activities, self care/home management, manual therapy, neuromuscular reeducation, modalities prn, urostym Plan for next visit: Perform PFM assessment & remaining assessment components with application of HEP as indicated. Next Appt Details Follow Up: 1 Week, Reason: Provider Name:Esther carrera, 2024 08:45:00 AM, [address] [place], [place] [address], [address], [id number], Provider Name:Jeremy barton, 11/26/2024 11:30:00 AM, [address] [place], [place] [address] [facility], [address], [id number], Provider Name:Jeremy barton, 12/03/2024 01:45:00 PM, [address] [place], [place] [address] [address], [id number], Provider Name:Jeremy barton, 12/10/2024 01:45:00 PM, [address] [place], [place] [address], [address], [id number], Provider Name:Jeremy barton, 12/17/2024 01:45:00 PM, [address] [place] [address] [facility], [address], [id number], Provider Name:Esther Marroquin Johnny carrera, 12/24/2024 01:30:00 PM, [address] [place] [address], [address], [id number], Provider Name:Jeremy Cara Jay barton, 12/31/2024 01:45:00 PM, [address] [place], [place] [address] [facility], [address], [id number], Provider Name:Esther Marroquin Johnny carrera, 01/07/2025 01:30:00 PM, [address] [place] [address], [address], [id number], Provider Name:Oly Knight, 1 03/12/2024 01:30:00 PM, [address] [place], [phone], Progress Notes * Hilda SHARMA RDOB: (33 yo F)Acc No.[id number]:09/12/2024 Patient: Evangelina Hilda ARCE R Provider: Yovanny Anthony DPT :1990 A ge:33 Y S ex:Female Date:09/12/2024 Address:[address] [place], [place] [id number] Pcp:Rubia Hines Subjective: * Chief Complaints: * * HPI: S ubjective: Evaluation P roblem List: S UI,Low back pain,Fecal urgency,Fecal incontinence,Dysparunia R [place] [facility] [place] Number of Visits 1 F all risk: N o F anthony in the last 6 months: N o H as a fear of falling: N o L iving Situation: I ndependent Currently living with a friend, planning on getting her own apartment. P recautions: N one/free,High anxiety Does therapy and medication to manage anxiety. C ognition: O riented to person, place, and time P atient Goal: improve pelvic floor so that I can jump without being afraid of peeing myself and not need to run to the bathroom every time I need to poop V erbal subjective: P santosh reports a long history since childhood of IRENE incontinence most notable with things like jumping & sneezing. Also reports concerns related to fecal urgency incontinence that has been present the last couple years. Notes a history significant for rectal prolapse when she was very young (5 years old that was told resolved on it's own). Additionally patient notes pain with intimacy related functions with deeper penetration. 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 P ain: Y es P ain Scale (out of 10): 2 L ocation: L ow back D escription: A gracie C omorbidities that could influence POC: M ental illness Anxiety, ADHD, autism, depression. C hildbirth History: N one F requency of urination during the day: 0 -6X 4x/day N octuria: 0 -1X H ow long can you delay after urge to urinate:?Hours U sual amount of urine passed: M edium F requency of bowel movements per day: 1 F requency of bowel movements per week: 7 H ow long can you delay after bowel urge: M inutes Varies however may have extreme abdominal pain if so. F luid intake H20 (in cups): 5 F luid intake caffeine (in cups): 0 I ncontinence symptoms- urine leakage: d rops,0-2,per week,with exertion or straining I ncontinence symptoms- bowel leakage: S everal close calls but no actual fecal incontinence. P ads used in a 24 hour period: 0 P rolapse symptoms- heaviness: N o P rolapse symptoms- organ descent symptoms:?No O ther symptoms related to bowel/bladder dysfunction: A bdominal pain with strong bowel urges. T rouble initiating urine stream: N o T rouble emptying bladder completely: N o C onstant dribble of urine: N o T rouble feeling an urge: N o U rinary hesitancy/slow stream: N o C onstipation: N o 1x every couple of weeks H x of UTI: N o D ribbling after urination: N o T rouble holding back gas: Y es B lood in urine: N o S training to empty bladder: N o S training to empty bowels: N o Rarely H istory of childhood bladder problems Y es Lots of UTI's and urinary incontinence as a child. S exually active: N ot currently but has been in the past. P elvic Pain Marinoff Scale (0-3): H as had pain with deeper penetration in the past. * Medical History: * Medications: T aking clonazePAM 0.5 MG Tablet 1 tablet Orally Once a day , Taking buPROPion HCl 150 MG Tablet Extended Release as directed Orally , Not-Taking Probiotic , Not- Taking Ibuprofen , Notes to Pharmacist: PRN Objective: * Vitals: * Examination: E xam: PT Evaluation N o objective measurements performed D ue to extensive subjective assessment,Due to extensive time educating the patient P atient was verbally informed of the indications, contraindications, precautions, procedures, and risks for internal assessment and treatment of the pelvic floor. Patient verbally consented to the evaluation and treatment to be provided by the physical therapist. Therapeutic Interventions: * Therapeutic Interventions: 1 . P hysical Therapy Education : 25 Minutes: Performed with intent to reduce symptoms during daily activities and promote self-management;,Education on the anatomy, physiology and etiology of the pelvic floor, pelvic organs, nervous system and intraabdominal pressure system and how it all relates to the patient's symptoms to incorporate awareness into her ADL*Movement on the hour*Hydration & nutrition goals*MeditationHeadspace, Calm,*Take moments to breath, slow down, especially before/after transitions. Exercise : Minutes: Indicated to improve ROM, strengthening and relaxation of muscles according to findings in the Initial Evaluation: Manual Therapy : Minutes: To promote soft tissue and blood flow for mobility, improved healing and decreased pain: Neuro Re-education : Minutes: Indicated for pelvic floor awareness, recruitment and coordination and to create and improved brain/neurological/body connection: Evaluation : 20 Minutes: Completed the musculoskeletal evaluation including subjective and objective assessments and creation of POC: Therapeutic Activities : Minutes: Performed with intent to optimize functional movement related to the patient's condition: Assessment: * Physical Therapy Assessment: 1. F unctional Limitations Self care : The patient is not independent with a self care/home exercise program for symptom management 2. P hysical Therapy Diagnosis Musculoskeletal Patterns : Impaired Posture, Impaired Muscle Performance, Impaired Joint Mobility, Motor Function, Muscle Performance, and Range of Motion, Associated with, Connective Tissue Dysfunction 3. S hort Term Goals 4 weeks : The patient will be independent with the beginning stages of a HEP to promote self-care and healthy lifestyle habits as well as good progress towards her LTGsThe patient will report incontience from __0-2__ X per _wk___ to _0-2___X per __month___ to promote improved quality of lifeThe patient will report 50% less incontinence overall to promote improved quality of life.The patient will report 50% improvement in fecal urgency symptoms to promote improved bowel habitsPt will report performing 3 or more self cares on a daily basis in order to improve bowel function for more complete BMs 4. L rudolph Term Goals 6 weeks : The patient will report voiding every 2-3 hours to promote return to normal bladder functionThe patient will report __0-2__ instances of pain a week to promote tolerance to ADLsThe patient will report a scale of 0-1 on the Mairnoff scale to promote improved tolerance to intimacyThe patient will report __0-2__ instance of incontinence per month to promote return to PLOFThe patient will report daily bowel movements with a 3-4 rating on the Mobile Stool Scale to promote normal bowel habits. 8 weeks/2 months : The patient will be independent with self-management of symptoms and return to her PLOF. G ood * Assessment: 1. S UI (stress urinary incontinence, female) - N39.3 2 . P elvic floor dysfunction in female - M62.89 (Primary) 3 . O ther chronic pain - G89.29 ? 4 . L ow back pain, unspecified - M54.50 5 . F ecal urgency - R15.2 6. F ecal smearing - R15.1 7 . D yspareunia, female - N94.10? The patient tolerated treatm ent with no adverse effects. She came for an initial PT visit for symptoms of pelvic floor muscle dysfunction related to IRENE, LBP, fecal urgency, fecal incontinence and dyspareunia. The patient was educated on the anatomy, physiology and etiology of the pelvic floor, pelvic organs, nervous system and intraabdominal pressure system and how it all relates to the patient's symptoms to incorporate awareness into her ADLs. Limited objective measures taken today due to increased time taken with subjective information gathering and education on immediate self care strategies for home application of status and symptom management. The patient's course of treatment was explained to her and her goals were set in place. The patient's questions were answered to her satisfaction and she had no questions or concerns at the end of her session. Overall she would greatly benefit from PT to address her current musculoskeletal imbalances so she can return to her PLOF. Further musculoskeletal objective measures will be performed at subsequent visits as indicated. Plan: * Treatment: * Procedure Codes: 9 7161 PT EVAL LOW COMPLEX 20 MIN, Modifiers: GP , 88691 SELF CARE MNGMENT TRAINING, Units: 2.00 , Modifiers: GP * Follow Up: 1 Week * Images: Billing Information: * Visit Code: * Procedure Codes: 37960 PT EVAL LOW COMPLEX 20 MIN. Modifiers: GP [address]128 SELF CARE MNGMENT TRAINING. Units: 2.00. Modifiers: GP * Sign off status: Completed true * Provider: Yovanny Anthony DPT Date: 09/12/2024 Generated for Miguel norris/Tanya/Wilfredoitting on: 10/19/2024 03:39 PM CDT History and Physical Notes * HPI (History of Present Illness) Category Sub-Category Detail Notes Category Not es Subjective Evaluation Problem List:: S UI,Low back pain,Fecal urgency,Fecal incontinence,Dysparunia Ref[place]:: Oly [place] [facility] [place] Number of Visits: 1 Fall risk:: No Fallen in the last 6 months:: No Has a fear of falling:: No Living Situation:: Independent Currently living with a friend, planning on getting her own apartment. Precautions:: None/free,High anxiety Cruz s therapy and medication to manage anxiety. Cognition:: Oriented to pers on, place, and time Patient Goal:: improve pelvic floo r so that I can jump without being afraid of peeing myself and not need to run to the bathroom every time I need to poop Verbal subjective:: Patient reports a lo ng history since childhood of IRENE incontinence most notable with things like jumping & sneezing. Also reports concerns related to fecal urgency incontinence that has been present the last couple years. Notes a history significant for rectal prolapse when she was very young (5 years old that was told resolved on it's own). Additionally patient notes pain with intimacy related functions with deeper penetration. 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 Pain:: Yes Pain Scale (out of 10):: 2 Location:: Low back Description:: Aching Comorbidities that could inf luence POC:: Mental illness Anxiety, ADHD, autism, depression. Childbirth History:: None Frequency of urination durin g the day:: 0-6X 4x/day Nocturia:: 0-1X How long can you delay after urge to urinate:: Hours Usual amount of urine passed:: Medium Frequency of bowel movements per day:: 1 Frequency of bowel movements per week:: 7 How long can you delay after bowel urge:: Minutes Varies however may have extreme abdomina l pain if so. Fluid intake H20 (in cups):: 5 Fluid intake caffeine (in cups):: 0 Incontinence symptoms- urine leakage:: drops,0-2,per week,with exertion or straining Incontinence symptoms- bowel leakage:: S everal close calls but no actual fecal incontinence. Pads used in a 24 hour period:: 0 Prolapse symptoms- heaviness:: No Prolapse symptoms- organ judy cent symptoms:: No Other symptoms related to dee wel/bladder dysfunction:: Abdominal pain with strong bowel urges. Trouble initiating urine stream:: No Trouble emptying bladder completely:: No Constant dribble of urine:: No Trouble feeling an urge:: No Urinary hesitancy/slow stream:: No Constipation:: No 1x every couple of w eeks Hx of UTI:: No Dribbling after urination:: No Trouble holding back gas:: Yes Blood in urine:: No Straining to empty bladder:: No Straining to empty bowels:: No Rarely History of childhood bladder problems: Y es Lots of UTI's and urinary incontinence as a child. Sexually active:: Not currently but [place] s been in the past. Pelvic Pain Marinoff Scale (0-3):: Has h ad pain with deeper penetration in the past. Examination Category Sub-Category Detail Notes Category Not es Exam PT Evaluation No objective art surements performed: Due to extensive subjective assessment,Due to extensive time educating the patient Patient was verbally informed of the indications, contraindications, precautions, procedures, and risks for internal assessment and treatment of the pelvic floor. Patient verbally consented to the evaluation and treatment to be provided by the physical therapist.
--- OUTSIDE RECORDS SUMMARY | 2024-09-25 05:00 | XMS_ITS ---
Author Organization [facility] e Address [address] [place] [address] Care Team Providers Care Label Paster Name Role Phone Donny Rubia Primary Care Provider Jeremy Anthony Unavailable [phone] None, No PCP Unavailable Unavailable Medications Medication SIG (Take, Route, Frequency, Duration) Notes Start Date End Date Status clonazePAM 0.5 MG 1 tablet Orally Once a day Active Probiotic Not-Taking buPROPion HCl 150 MG as directed Orally Active Ibuprofen PRN Not-Taking Encounters Encounter Location Date Provider Diagnosis [address] [place], [place] [phone] 09/25/2024 Jeremy Anthony Pelvic floor dysfunction in female M62.89 ; IRENE (stress urinary incontinence, female) N39.3 ; Other chronic pain G89.29 ; Low back pain, unspecified M54.50 ; Fecal urgency R15.2 ; Fecal smearing R15.1 and Dyspareunia, female N94.10 Assessments Encounter Date Diagnosis (ICD Code) Assessment Notes Treatment Notes Treatment Clinical Notes Section Notes 09/25/2024 Pelvic floor dysfunction in female (ICD-10 - [...] symptoms to incorporate awareness into her ADLs. 09/25/24: Patient presents today with reported application of some improved healthy habits to optimize function and symptoms. She was receptive to application of orthopedic assessments as well as implementation of therapeutic exercises. Discussed performing PFM assessment next visit with application of further interventions as indicated. Patient was receptive to these recommendations. The patient's course of treatment was explained [...] be performed at subsequent visits as indicated. 09/25/2024 IRENE (stress urinary incontinence, female) (ICD-10 - [...] symptoms to incorporate awareness into her ADLs. 09/25/24: Patient presents today with reported application of some improved healthy habits to optimize function and symptoms. She was receptive to application of orthopedic assessments as well as implementation of therapeutic exercises. Discussed performing PFM assessment next visit with application of further interventions as indicated. Patient was receptive to these recommendations. The patient's course of treatment was explained [...] be performed at subsequent visits as indicated. 09/25/2024 Other chronic pain (ICD-10 - G89.29) The [...] symptoms to incorporate awareness into her ADLs. 09/25/24: Patient presents today with reported application of some improved healthy habits to optimize function and symptoms. She was receptive to application of orthopedic assessments as well as implementation of therapeutic exercises. Discussed performing PFM assessment next visit with application of further interventions as indicated. Patient was receptive to these recommendations. The patient's course of treatment was explained [...] be performed at subsequent visits as indicated. 09/25/2024 Low back pain, unspecified (ICD-10 - M54.50) [...] symptoms to incorporate awareness into her ADLs. 09/25/24: Patient presents today with reported application of some improved healthy habits to optimize function and symptoms. She was receptive to application of orthopedic assessments as well as implementation of therapeutic exercises. Discussed performing PFM assessment next visit with application of further interventions as indicated. Patient was receptive to these recommendations. The patient's course of treatment was explained [...] be performed at subsequent visits as indicated. 09/25/2024 Fecal urgency (ICD-10 - R15.2) The patient [...] symptoms to incorporate awareness into her ADLs. 09/25/24: Patient presents today with reported application of some improved healthy habits to optimize function and symptoms. She was receptive to application of orthopedic assessments as well as implementation of therapeutic exercises. Discussed performing PFM assessment next visit with application of further interventions as indicated. Patient was receptive to these recommendations. The patient's course of treatment was explained [...] be performed at subsequent visits as indicated. 09/25/2024 Fecal smearing (ICD-10 - R15.1) The patient [...] symptoms to incorporate awareness into her ADLs. 09/25/24: Patient presents today with reported application of some improved healthy habits to optimize function and symptoms. She was receptive to application of orthopedic assessments as well as implementation of therapeutic exercises. Discussed performing PFM assessment next visit with application of further interventions as indicated. Patient was receptive to these recommendations. The patient's course of treatment was explained [...] be performed at subsequent visits as indicated. 09/25/2024 Dyspareunia, female (ICD-10 - N94.10) The patient [...] symptoms to incorporate awareness into her ADLs. 09/25/24: Patient presents today with reported application of some improved healthy habits to optimize function and symptoms. She was receptive to application of orthopedic assessments as well as implementation of therapeutic exercises. Discussed performing PFM assessment next visit with application of further interventions as indicated. Patient was receptive to these recommendations. The patient's course of treatment was explained [...] be performed at subsequent visits as indicated. 09/25/2024 Other Treatment Plan: Frequency: weekly or bi [...] symptoms to incorporate awareness into her ADLs. 09/25/24: Patient presents today with reported application of some improved healthy habits to optimize function and symptoms. She was receptive to application of orthopedic assessments as well as implementation of therapeutic exercises. Discussed performing PFM assessment next visit with application of further interventions as indicated. Patient was receptive to these recommendations. The patient's course of treatment was explained [...] Reason: Provider Name:Esther carrera, 2024 08:45:00 AM, [facility], [address] [address], [place], [place], [phone], Provider Name:Jeremy malone, 11/26/2024 11:30:00 AM, [address] [place], [place] [address], [address] [address], [place], [place], [phone], Provider Name:Jeremy malone, 12/03/2024 01:45:00 PM, [address] [place], [place] [email or web address], [address] [address], [place], [place], [phone], Provider Name:Jeremy malone, 12/10/2024 01:45:00 PM, [address] [place], [place] [email or web address], [address], [phone], Provider Name:Jeremy Thompson oralia, 12/17/2024 01:45:00 PM, [address] [place], [place] [email or web address], [phone], Provider Name:Esther Ike carrera, 12/24/2024 01:30:00 PM, [address] [place], [place] [email or web address], [address], [phone], Provider Name:Jeremy Thompson oralia, 12/31/2024 01:45:00 PM, [address] [place], [place] [email or web address], [phone], Provider Name:Esther carrera, 01/07/2025 01:30:00 PM, [address] [place], [place] [email or web address], [phone], Provider Name:Oly Knight, 1 03/12/2024 01:30:00 PM, [address] [place], [phone], Progress Notes * Hilda SHARMA RDOB: (33 yo F)Acc No.[id number]:09/25/2024 Patient: Hilda BAEZA Provider: Yovanny Anthony DPT :1990 A ge:33 Y S ex:Female Date:09/25/2024 Address:[address] [place] [address] BASIA Malone [phone] Pcp:Rubia Hines Subjective: * Chief Complaints: * * HPI: S ubjective: Evaluation P sailaja List: S UI,Low back pain,Fecal urgency,Dysparunia R eferral: [place] achel [place] 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 Patient verbally consented to the evaluation and treatment to be provided by the physical therapist. Therapeutic Interventions: * Therapeutic Interventions: 1 . P hysical Therapy Education : 10 Minutes: Performed with intent to reduce symptoms during daily activities and promote self-management;,Review and recommendation to continue application of the following for improved function and management of symptoms.Education on the anatomy, physiology and etiology of the pelvic floor, pelvic organs, nervous system and intraabdominal pressure system and how it all relates to the patient's symptoms to incorporate awareness into her ADL*Movement on the hour - improve bowel motility, decrease PFM tension, decrease back pain.*Hydration & nutrition goals - stimulates bowel motility and supports optimal body function.*Meditation - reduce stress & consequently muscle tension and improve function.Headspace, Calm,*Take moments to breath, slow down, especially before/after transitions. Exercise : 25 Minutes: Indicated to improve ROM, strengthening and relaxation of muscles according to findings in the Initial Evaluation:*Orthopedic assessments with application of the following based on findings and reported symptoms.Performed & recommended as implementation as part of HEP.Verbal and tactile cues as needed to ensure correct form and application.Access Code: [email or web address]: [email or web address]: 09/25/2024Prepared by: Jeremy AceyExercises- Clamshell - 1 x daily - 4 x weekly - 2 sets - 10 reps - exhale hold*Cues to limit pelvic rotation- Supine Piriformis Stretch - 1-2 x daily - 7 x weekly - 1 sets - 3 reps - 5-6 slow breath cycles hold*Emphasis to feel stretch, not pain.- Seated Piriformis Stretch - 1 x daily - 7 x weekly - 3 sets - 10 repsOption if not performed supein.- Happy Baby with Pelvic Floor Lengthening - 1-2 x daily - 7 x weekly - 1 sets - 3 reps - 5-6 slow breath cycles hold*Emphasis on breathing to improve PFM relaxation and reduced tension.- Prone Press Up - 1-2 x daily - 6-7 x weekly - 2 sets - 10 reps*Promote extension due to increased flexion and work related tasks.- Child's Pose Stretch - 1-2 x daily - 7 x weekly - 1 sets - 3 reps - 5-6 slow breath cycles hold*Cues for breath and off loading to pelvic floor and for back. Manual Therapy : Minutes: To promote soft tissue and blood flow for mobility, improved healing and decreased pain: Neuro Re-education : Minutes: Indicated for pelvic floor awareness, recruitment and coordination and to create and improved brain/neurological/body connection: Therapeutic Activities : Minutes: Performed with intent [...] movements with a 3-4 rating on the [place] Stool Scale to promote normal bowel habits. 8 weeks/2 months : The patient will be independent with self-management of symptoms and return to her PLOF. G ood * Assessment: 1. P elvic floor dysfunction in female - M62.89 (Primary) 2 . S UI (stress urinary incontinence, female) - N39.3 3 . O ther chronic pain - [...] symptoms to incorporate awareness into her ADLs. 09/25/24: Patient presents today with reported application of some improved healthy habits to optimize function and symptoms. She was receptive to application of orthopedic assessments as well as implementation of therapeutic exercises. Discussed performing PFM assessment next visit with application of further interventions as indicated. Patient was receptive to these recommendations.? The patient's course of treatment was explained [...] Plan: * Treatment: * Procedure Codes: 9 7535 SELF CARE MNGMENT TRAINING, Modifiers: GP , 02296 THERAPEUTIC EXERCISES, Units: 2.00 , Modifiers: GP * Follow Up: 1 Week * Images: Billing Information: * Visit Code: * Procedure Codes: 04408 SELF CARE MNGMENT TRAINING. Modifiers: [place] 64079 THERAPEUTIC EXERCISES. Units: 2.00. Modifiers: GP * Sign off status: Completed true * Provider: Yovanny Anthony DPT Date: 09/25/2024 Generated for Miguel norris/Tanya/Wilfredoitting on: 10/19/2024 03:39 PM CDT History and Physical Notes * HPI (History of Present Illness) Category Sub-Category Detail Notes Category Not es Subjective Evaluation Problem List:: S UI,Low back pain,Fecal urgency,Dysparunia Referral:: Oly Knight [place] 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 Patient verbally consented to the evaluation and treatment to be provided by the physical therapist. Hip Strength: : Abduction:: 4/5 R,4/5 L Hip external rotation: 4-/5 R,4-/5 L Flexibility (documented in amount limite d): : Adductors:: within normal limits R,within normal limits L Hamstrings:: within normal limits R,within normal limits L Internal rotation at 90 deg: mild R,mild L External hip rotators:: mild L,mild R
--- OUTSIDE RECORDS SUMMARY | 2024-10-04 09:15 | XMS_ITS ---
Author Organization [facility] Address [address] [place] [address] Care Team Providers Care Electronic Health Records Specialist Name Role Phone Donny Rubia Primary Care Provider Jeremy Anthony Unavailable [phone] None, No PCP Unavailable Unavailable Esther Gutierrez Unavailable [phone] Medications Medication SIG (Take, Route, Frequency, Duration) Notes Start Date End Date Status clonazePAM 0.5 MG 1 tablet Orally Once a day Active Ibuprofen PRN Not-Taking Probiotic Not-Taking buPROPion HCl 150 MG as directed Orally Active Encounters Encounter Location Date Provider Diagnosis [address] [place], [place] [id number] 10/04/2024 Esther Gutierrez Pelvic floor dysfunction in female M62.89 ; IRENE (stress urinary incontinence, female) N39.3 ; Other chronic pain G89.29 ; Low back pain, unspecified M54.50 ; Fecal urgency R15.2 ; Fecal smearing R15.1 and Dyspareunia, female N94.10 Assessments Encounter Date Diagnosis (ICD Code) Assessment Notes Treatment Notes Treatment Clinical Notes Section Notes 10/04/2024 Pelvic floor dysfunction in female (ICD-10 - [...] symptoms to incorporate awareness into her ADLs. 10/04/24: Completed the PF muscle exam and she presents with increased tension and soreness globally. Performed gentle STM to her PF and she tolerated this well today with no immediate change to symptoms. Answered her questions to satisfaction. Overall she would greatly benefit from PT to address her current musculoskeletal imbalances so she can return to her PLOF. Further musculoskeletal objective measures will be performed at subsequent visits as indicated. 10/04/2024 IRENE (stress urinary incontinence, female) (ICD-10 - [...] symptoms to incorporate awareness into her ADLs. 10/04/24: Completed the PF muscle exam and she presents with increased tension and soreness globally. Performed gentle STM to her PF and she tolerated this well today with no immediate change to symptoms. Answered her questions to satisfaction. Overall she would greatly benefit from PT to address her current musculoskeletal imbalances so she can return to her PLOF. Further musculoskeletal objective measures will be performed at subsequent visits as indicated. 10/04/2024 Other chronic pain (ICD-10 - G89.29) The [...] symptoms to incorporate awareness into her ADLs. 10/04/24: Completed the PF muscle exam and she presents with increased tension and soreness globally. Performed gentle STM to her PF and she tolerated this well today with no immediate change to symptoms. Answered her questions to satisfaction. Overall she would greatly benefit from PT to address her current musculoskeletal imbalances so she can return to her PLOF. Further musculoskeletal objective measures will be performed at subsequent visits as indicated. 10/04/2024 Low back pain, unspecified (ICD-10 - M54.50) [...] symptoms to incorporate awareness into her ADLs. 10/04/24: Completed the PF muscle exam and she presents with increased tension and soreness globally. Performed gentle STM to her PF and she tolerated this well today with no immediate change to symptoms. Answered her questions to satisfaction. Overall she would greatly benefit from PT to address her current musculoskeletal imbalances so she can return to her PLOF. Further musculoskeletal objective measures will be performed at subsequent visits as indicated. 10/04/2024 Fecal urgency (ICD-10 - R15.2) The patient [...] symptoms to incorporate awareness into her ADLs. 10/04/24: Completed the PF muscle exam and she presents with increased tension and soreness globally. Performed gentle STM to her PF and she tolerated this well today with no immediate change to symptoms. Answered her questions to satisfaction. Overall she would greatly benefit from PT to address her current musculoskeletal imbalances so she can return to her PLOF. Further musculoskeletal objective measures will be performed at subsequent visits as indicated. 10/04/2024 Fecal smearing (ICD-10 - R15.1) The patient [...] symptoms to incorporate awareness into her ADLs. 10/04/24: Completed the PF muscle exam and she presents with increased tension and soreness globally. Performed gentle STM to her PF and she tolerated this well today with no immediate change to symptoms. Answered her questions to satisfaction. Overall she would greatly benefit from PT to address her current musculoskeletal imbalances so she can return to her PLOF. Further musculoskeletal objective measures will be performed at subsequent visits as indicated. 10/04/2024 Dyspareunia, female (ICD-10 - N94.10) The patient [...] symptoms to incorporate awareness into her ADLs. 10/04/24: Completed the PF muscle exam and she presents with increased tension and soreness globally. Performed gentle STM to her PF and she tolerated this well today with no immediate change to symptoms. Answered her questions to satisfaction. Overall she would greatly benefit from PT to address her current musculoskeletal imbalances so she can return to her PLOF. Further musculoskeletal objective measures will be performed at subsequent visits as indicated. 10/04/2024 Other Treatment Plan: Frequency: weekly or bi weekly Duration: 8-12 visits Planned Interventions: therapeutic exercise, therapeutic activities, self care/home management, manual therapy, neuromuscular reeducation, modalities prn, urostym Plan for next visit: Continue MT to PFM, perform remaining assessment components with application of HEP [...] symptoms to incorporate awareness into her ADLs. 10/04/24: Completed the PF muscle exam and she presents with increased tension and soreness globally. Performed gentle STM to her PF and she tolerated this well today with no immediate change to symptoms. Answered her questions to satisfaction. Overall she would greatly benefit from PT [...] modalities prn, urostym Plan for next visit: Continue MT to PFM, perform remaining assessment components with application of HEP as indicated. Next Appt Details Follow Up: 1 Week, Reason: Provider Name:Esther carrera, 2024 08:45:00 AM, [address] [place] [address], [id number], Provider Name:Jeremy barton, 11/26/2024 11:30:00 AM, [address] [place] [address], [id number], Provider Name:Jeremy barton, 12/03/2024 01:45:00 PM, [address] [place] [address], [id number], Provider Name:Jeremy barton, 12/10/2024 01:45:00 PM, [address] [place], [place] [address] [address], [id number], Provider Name:Jeremy barton, 12/17/2024 01:45:00 PM, [address] [place] [address], [id number], Provider Name:Esther carrera, 12/24/2024 01:30:00 PM, [address] [place] [address], [id number], Provider Name:Jeremy barton, 12/31/2024 01:45:00 PM, [address] [place] [address], [id number], Provider Name:Esther carrera, 01/07/2025 01:30:00 PM, [address] [place] [address], [id number], Provider Name:Oly Knight, 1 03/12/2024 01:30:00 PM, [address] [place], [phone], Progress Notes * Hilda SHARMA RDOB: (33 yo F)Acc No.[id number]:10/04/2024 Patient: Hilda BAEZA Provider: Alexi Gutierrez DPT :1990 A ge:33 Y S ex:Female Date:10/04/2024 Address:[address] [place] [address] [id number] Pcp:Rubia Hines Subjective: * Chief Complaints: * * HPI: S ubjective: 10/04/24: Pt reports feeling about the same. 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 P ain: Y es P ain Scale (out of 10): 2 L ocation: L ow back D escription: A gracie Farah omorbidities that could influence POC: M ental [...] Vitals: * Examination: E xam: PT Evaluation E xternal/Visual Perineal Exam : M uscle contraction response: n il S train response: b noemy P elvic Floor Internal Assessment : L saul 1-STP, bulbocavermosus, ischiocavernosus : S ensation: i ntact P ain: m ild,bilateral T ension: m ild,bilateral L saul 2-sphincter urethrovaginalis, compressor urethra, DTP : S ensation: i ntact P ain: m oderate,bilateral T ension: m oderate,bilateral L saul 3-levator ani, ischiococcygeus, obturator internus, piriformis : S ensation: i ntact P ain: m oderate,bilateral T ension: m oderate,bilateral P elvic Floor Strength (PERF) : P ower (out of 5): 1 R elaxation after contraction: d elayed P rolapse: n one P osture: r ounded shoulders H ip [...] 1 . P hysical Therapy Education : 0 Minutes: Performed with intent to reduce symptoms [...] slow down, especially before/after transitions. Exercise : 0 Minutes: Indicated to improve ROM, strengthening and relaxation of muscles according to findings in the Initial Evaluation:*Orthopedic assessments with application of the following based on findings and reported symptoms.Performed & recommended as implementation as part of HEP.Verbal and tactile cues as needed to ensure correct form and application.Access Code: [email or web address]: [email or web address]/Date: 09/25/2024Prepared by: Jeremy ShameyExercises- Clamshell - 1 x daily - 4 [...] floor and for back. Manual Therapy : 42 Minutes: To promote soft tissue and blood flow for mobility, improved healing and decreased pain:- completed the PF muscle exam and she presents with increased tension and mild to moderate soreness globally as noted above. Performed gentle STM to her PF in all three layers bilateral. Reports feeling referral to her lower back today with the palpation where she's experienced back pain in the past with no relief with treatments. Assessment: * Physical Therapy Assessment: 1. F [...] movements with a 3-4 rating on the [place] Stool Scale to promote normal bowel habits. 8 weeks/2 months : The patient will be independent with self-management of symptoms and return to her PLOF. : All goals ongoing, still early in the POC and no change to symptoms * Assessment: 1. P elvic floor dysfunction [...] symptoms to incorporate awareness into her ADLs. 10/04/24: Completed the PF muscle exam and she presents with increased tension and soreness globally. Performed gentle STM to her PF and she tolerated this well today with no immediate change to symptoms. Answered her questions to satisfaction. Overall she would greatly benefit from PT to address her current musculoskeletal imbalances so she can return to her PLOF. Further musculoskeletal objective measures will be performed at subsequent visits as indicated. Plan: * Treatment: * Procedure Codes: 9 7140 MANUAL THERAPY, Units: 3.00 , Modifiers: GP * Follow Up: 1 Week * Images: Billing Information: * Visit Code: * Procedure Codes: 87295 MANUAL THERAPY. Units: 3.00. 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 Patient verbally consented to the evaluation and treatment to be provided by the physical therapist. Muscle contraction response:: nil Strain response:: bulge Pelvic Floor Internal Assessment: : Layer 1-STP, bulbocavermosus, ischiocavernosus: : Sensation:: intact Pain:: mild,bilateral Tension:: mild,bilateral Layer 2-sphincter urethrovaginalis, compressor urethra, DTP: : Sensation:: intact Pain:: moderate,bilateral Tension:: moderate,bilateral Layer 3-levator ani, ischiococcygeus, obturator internus, piriformis: : Sensation:: intact Pain:: moderate,bilateral Tension:: moderate,bilateral Pelvic Floor Strength (PERF): : Power (out of 5):: 1 Relaxation after contraction:: delayed Prolapse:: none Posture:: rounded shoulders Hip Strength: : Abduction:: 4/5 R,4/5 L Hip external rotation: 4-/5 R,4-/5 L Flexibility (documented in amount limite d): : Adductors:: within normal limits R,within normal limits L Hamstrings:: within normal limits R,within normal limits L Internal rotation at 90 deg: mild R,mild L External hip rotators:: mild L,mild R
--- OUTSIDE RECORDS SUMMARY | 2024-10-19 15:39 | XMS_ITS | Clinical Summary ---
Author Organization [facility] Address [address] [place] [id number] Care Team Providers Care Extension Forester Name Role Phone Winsome Mcmahon Primary Care Provider [phone] Allergies Active Allergy Reactions Criticality Noted Date Comments Adhesive Tape-Silicones Rash 08/17/2023 Penicillin V Potassium Hives 09/02/2022 Medications lactobacillus combination no.4 (Probiotic) 3 billion cell cap Take by mouth. Active cholecalciferol, vitamin D3, (VITAMIN D3 ORAL) Take 2,000 Int'l Units/1.7m2 by mouth once daily. Active ondansetron (ZOFRAN ODT) 4 mg disintegrating tablet 4 Active buPROPion (Wellbutrin XL) 150 mg Extended-Release tabletIndications: MDD (major depressive disorder), recurrent episode, moderate (HC) Take 1 Tablet (150 mg) by mouth once daily. 90 Tablet 1 5 Active clonazePAM 0.5 mg tabletIndications: AVIVA (generalized anxiety disorder) Take 0.5-1 Tablet (0.25-0.5mg) by mouth one to two times daily if needed for Anxiety. 10 Tablet 1 5 Active albuterol HFA (PRO-AIR; VENTOLIN; PROVENTIL) 90 mcg/actuation inhalerIndications :Extrinsic asthma with acute exacerbation, unspecified asthma severity, unspecified whether persistent (HC) Inhale 1-2 Puffs by mouth every 4 hours if needed for Shortness Of Breath or Wheezing. 1 Each 3 5 Active predniSONE (DELTASONE) 20 mg tabletIndications: Extrinsic asthma with acute exacerbation, unspecified asthma severity, unspecified whether persistent (HC) Take 1 Tablet (20 mg) by mouth once daily with a meal for 5 days. 5 Tablet 5 10/21/19 25 Active Active Problems Problem Noted Date Diagnosed Date Anxiety 09/02/2022 Chronic fatigue 09/02/2022 Vitamin D deficiency 09/02/2022 Autism 09/02/2022 Encounters Date Type Department Care Team Description 10/18/2024 Travel 10/15/2024 10:30 AM CDT Office Visit [facility] [address] [place] [address] Ch[place] Cough (past couple months she has been experiencing a cough and chest tightness especially with the air quality/concerns for asthma.) 10/15/2024 Travel 10/10/2024 Travel 09/18/2024 7:30 AM CDT Office Visit [facility] [address] [place] [address] Maria Pineda PA Consult (Flank pain) 09/17/2024 Transcribe Orders [facility] [place] [phone] Oly Knight NP 09/17/2024 Travel 09/10/2024 8:30 AM CDT Office Visit [facility] [address] [place] [phone] Vikki Renteria NP Follow Up 09/10/2024 Travel 09/06/2024 Travel 08/06/2024 10:30 AM CDT Office Visit [facility] [address] [place] [phone] Vikki Renteria NP Follow Up 08/05/2024 Travel from Last 3 Months Immunizations Immunization Administration Dates Next Due COVID-19 vaccine (Moderna 100mcg/0.5mL) PF, MDV 02/17/2021 COVID-19 vaccine (Pfizer-Bio NTech 30mcg/0.3mL) 12YO+ BIVALENT PF, MDV 01/04/2022 DTaP 05/31/1994, 4,03/19/1993,1992 HIB PRP-OMP (PedvaxHIB) 05/31/1994,05/14,03/19/1993,1992 Hepatitis B (Peds) 05/14/1993,1992, 993 INFLUENZA, IIV3 PF (AGE >= 6 MO) 01/13/2024 Influenza, IIV3 (Age >=3 years) 11/08/2017 Influenza, IIV4 02/13/2023,02/18/2022,12/19/2020 Influenza, IIV4 (=>6mos) MDV 12/04/2018,10/31/19 17 Influenza,CCIIV4 PRESERV FREE 02/05/2020 Tdap 09/27/2017 Varicella Vaccine 01/22/1998 Family History Relation Name Status Comments Brother Alive Father Alive Mother Alive Social History Tobacco Use Types Packs/Day Years Used Date Smoking Tobacco: Never Passive Smoke Exposure: Never Smokeless Tobacco: Never Tobacco Cessation:Counseling Given: Not Answered Alcohol Use Standard Drinks/Week Comments Yes 0 (1 standard drink = 0.6 oz pur e alcohol) occasional PHQ-2 Answer Date Recorded PHQ-2 TOTAL SCORE 3 09/09/2024 Social Connections Answer Date Recorded Do you often feel lonely or isolated from those around you? 0 10/10/2024 Financial Resource Strain Answer Date R ecorded Difficulty of Paying Living Expenses 3 10/10/2024 Difficulty of Paying Living Expenses Not on file 10/10/2024 Food Insecurity Answer Date Recorded Do you worry your food will run out before you are able to buy more? 1 10/10/2024 Transportation Needs Answer Date Record ed Does lack of transportation keep you from medica l appointments? 1 10/10/2024 Does lack of transportation keep you from work, meetings or getting things that you need? 1 10/10/2024 Housing Stability Answer Date Recorded What is your housing situation today? 3 10/10/2024 Utilities Answer Date Recorded Do you have trouble paying f or utilities (for example, heat, electricity, water, phone)? 1 10/10/2024 Comments No Sex and Gender Information Value Date Recorded Sex Assigned at Not on file Legal Sex Female 11:40 AM CDT Gender Identity Not on file Sexual Orientation Not on file Travel History Travel Start Travel End [place] 09/19/2024 09/22/2024 Obstetrics History Para Term AB IAB SAB Ectopic Multiple Livin g Live Births 0 0 0 0 0 0 0 0 0 0 0 Last Filed Vital Signs Vital Sign Reading Time Taken Comments Blood Pressure 108/68 10/15/2024 10:36 AM CDT Pulse 78 10/15/2024 10:36 AM CDT Temperature 36.7 C (98 F) 12/04/2023 11:53 AM CDT Respiratory Rate 20 08/17/2023 12:24 PM CDT Oxygen Saturation 98% 10/15/2024 10:36 AM CDT Inhaled Oxygen Concentration - - Weight 54.1 kg (119 lb 3.2 oz) 10/15/2024 10:36 AM CDT Height 167.6 cm (5' 6) 02/12/2024 1:28 PM [employer] Body Mass Index 19.24 02/12/2024 1:28 PM [employer] Plan of Treatment Upcoming Encounters Date Type Department Care Team (Late st Contact Info) Description 10/23/2024 9:15 AM CDT Office Visit [facility] [address] [place] [address] Anthony Ivey MBBS [address] [place] [address] 11/05/2024 10:30 AM CDT Office Visit [facility] [address] [facility] [place] [phone] Vikki Renteria NP [address] [place] [address] Health Maintenance Due Date Last Done Comments HIV for age 15-65 11/20/2007 Hepatitis C screening for age 18-79 2010 Pap test for age 21-65 2013 Influenza Vaccine (#1) 2024 , 02/13/2023, 02/18/2022, Additional history exists BMI (ht and wt on same day) for age 18+ 02/11/2025 02/12/2024, 12/12/2023, 09/02/2022 Depression screening for age 12+ 09/10/2025 09/10/2024, 09/09/2024, 08/06/2024, Additional history exists Tetanus booster 09/28/2027 09/27/2017 Hepatitis B series for 19+ Completed 05/14, 1992, 1992 COVID-19 vaccine series Completed 01/13/20 24, 02/13/2023, 01/04/2022, Additional history exists Pneumococcal series for age 6-49 Aged Out No longer eligible based on patient's age to complete this topic Insurance [place] [id number] Care Teams Extension Forester Relationship Specialty Start Date End Date Winsome Mcmahon DO [address] [place] [address] PCP - General Family Practice 09/02/22
--- OUTSIDE RECORDS SUMMARY | 2024-10-19 15:40 | XMS_ITS | Patient Health Record ---
Author Organization [employer] Address [address] [place] [address] Care Team Providers Care Gas Operation Manager Name Role Phone Rubia Hines Primary Care Provider Jeremy Anthony Unavailable [phone] None, No PCP Unavailable Unavailable Esther Gutierrez Unavailable [phone] Oly Knight Unavailable [phone] Allergies Allergen (clinical drug ingredient) Drug/Non Drug Allergy documented on EMR Reaction Allergy Type Onset Date Status Penicillin Unknown Drug Allergy Active Results Component Value Reference Range Notes THINPREP TIS AND HPV mRNA E6 /E7 W/ REFLEX 16, 18/45HPV Reviewed date:08/30/2024 12:04:09 PM Interpretation:Normal Performing Lab:[id number] Julio Hicks Notes/Report: CLINICAL INFORMATION: Other high risk factor, specify LMP: 08/22/24 PREV. PAP: 2020 PREV. BX: NONE GIVEN SOURCE: Cervix, Endocer vix STATEMENT OF ADEQUACY: Satisfactory for evaluation. Endocervical/transformation zone component present. INTERPRETATION/RESULT: Cytology Results: Negative for intraepithelial lesion or malignancy. COMMENT: This Pap test has been evaluated with computer assisted technology. TRAP SETTER: ALPA DAVILA(ASCP) CT Screening location: [address] [address] CLIA:[id number] COMMENT EXPLANATORY NOTE: The Pap is a screening test for cervical cancer. It is not a diagnostic test and is subject to false negative and false positive results. It is most reliable when a satisfactory sample, regularly obtained, is submitted with relevant clinical findings and history, and when the Pap result is evaluated along with historic and current clinical information. HPV mRNA E6/E7 Not Detected Not Detected http://education.[employer].com/faq/HAE001h0 (This link if provided for information/ educational purposes only.) Methodology: Qa Lead-Mediated Amplification This assay detects E6/E7 viral messenger RNA (mRNA) from 14 high-risk HPV types (16,18,31,33,35,39,45,51,52,5 6,58,59,66,68). Cervical sources are required for HPV testing. If a vaginal source from a patient who has had a total hysterectomy with removal of cervix was submitted, please contact the testing laboratory for alternative testing options. For additional information, please refer to Reason For Referral Reason [facility] Colorectal Diagnosis 1 Rectal pressure (R19 .8) Diagnosis 2 Rectal prolapse (K62 .3) Referral Organization [facility] Referring Provider First Name Oly Referring Provider Last Name Eugene Referring Provider Speciality Nurse Prac titioner Referred Provider Specialty Colorectal S urgery General Notes Oly Knight 025 12:35:40 PM CDT > Please send referral to Colorectal at [facility]. Indication is rectal pressure and history of rectal prolapse. Thanks, RT DNP Clinical Notes Sharif Perez 025 10:13:10 AM > Referral faxed to [facility] at [phone] - pt notified via email and given number for scheduling Referral Priority Routine Medications Medication SIG (Take, Route, Frequency, Duration) Notes Start Date End Date Status clonazePAM 0.5 MG 1 tablet Orally Once a day Active Ibuprofen PRN Not-Taking Probiotic Not-Taking buPROPion HCl 150 MG as directed Orally Active Social History Tobacco Use: Social History Observation Description Date Details (start date - stop date) Never Smoker NA - NA Tobacco Use/Smoking Question Answer Notes Are you a nonsmoker Problems Problem Type SNOMED Code ICD Code Onset Dates Problem Status W/U Status Risk Notes Problem Chronic pain (93327289) Other chronic pain (G89.29) Active confirmed Problem Rectal prolapse (07903939) Rectal prolapse (K62.3) Active confirmed Problem Fecal urgency (42522206) Fecal urgency (R15.2) Active confirmed Problem Dysmenorrhea (065155131) Dysmenorrhea (N94.6) Active confirmed Problem Pain in female genitalia on intercourse (98310653) Dyspareunia, female (N94.10) Active confirmed Problem Female urinary stress incontinence (49484240) IRENE (stress urinary incontinence, female) (N39.3) Active confirmed Problem Pelvic floor dysfunction (272067784) Pelvic floor dysfunction (M62.89) Active confirmed Problem Pelvic floor weakness (N81.89) Active confirmed Problem Rectal pressure (R19.8) Active confirmed Problem Malignant tumor of ovary (646969747) Ovarian cancer on right (C56.1) Active confirmed Vital Signs Blood pressure diastolic 62 mm Hg 08/27/2024 Height 64.5 in 08/27/2024 Blood pressure systolic 106 mm Hg 08/27/2024 Weight 124.0 lbs 08/27/2024 BMI 20.95 kg/m2 08/27/2024 Encounters Encounter Location Date Provider Diagnosis [address] [id number] 10/04/2024 Esther Gutierrez Pelvic floor dysfunction in female M62.89 ; IRENE (stress urinary incontinence, female) N39.3 ; Other chronic pain G89.29 ; Low back pain, unspecified M54.50 ; Fecal urgency R15.2 ; Fecal smearing R15.1 and Dyspareunia, female N94.[address] [id number] 09/25/2024 Jereym Shamey Pelvic floor dysfunction in female M62.89 ; IRENE (stress urinary incontinence, female) N39.3 ; Other chronic pain G89.29 ; Low back pain, unspecified M54.50 ; Fecal urgency R15.2 ; Fecal smearing R15.1 and Dyspareunia, female N94.[address] [id number] 09/12/2024 Jeremy Shamey Pelvic floor dysfunction in female M62.89 ; IRENE (stress urinary incontinence, female) N39.3 ; Other chronic pain G89.29 ; Low back pain, unspecified M54.50 ; Fecal urgency R15.2 ; Fecal smearing R15.1 and Dyspareunia, female N94.10 [facility] [address] [place] [address] 08/27/2024 [facility] Encounter for gynecological examination (general) (routine) without abnormal findings Z01.419 and Encounter for screening for human papillomavirus (HPV) Z11.51 [facility] [address] [place] [address] 08/27/2024 [facility] IRENE (stress urinary incontinence, female) N39.3 ; Rectal prolapse K62.3 ; Fecal urgency R15.2 ; Rectal pressure R19.8 ; Dyspareunia, female N94.10 ; Pelvic floor weakness N81.89 and Pelvic floor dysfunction M62.89 [facility] [address] [place] [address] [place] [address] 08/27/2024 [facility] [address] [place] [address] 08/27/2024 [facility] [address] [place] [address] 09/12/2024 Jeremy Anthony Assessments Encounter Date Diagnosis (ICD Code) Assessment Notes Treatment Notes Treatment Clinical Notes Section Notes 08/27/2024 Rectal prolapse (ICD-10 - K62.3) Patient has history of rectal prolapse. Due to symptom of increased rectal pressure and history of rectal prolapse, I recommend she have evaluation through [facility]. Message sent to [facility] coordinator to send referral to [facility]. Patient will receive phone call to schedule 08/27/2024 IRENE (stress urinary incontinence, female) (ICD-10 - N39.3) Today we reviewed the diagnosis of stress incontinence. We reviewed treatment options to include, 1. Conservative Therapies: - no treatment - fluid management - pelvic floor therapy (Urostym or PT) to strengthen the urethral sphincter and muscles around the urethra - Bladder device (pessary or Revive) 2. Advanced Therapies: - Pubovaginal Sling - Urethral Collagen Injections 3. We also discussed the non traditional options of Femilift, Thermiva, Geneveve, and PRP injections (Oshot). After our discussion she elected pelvic floor physical therapy. We discussed pelvic floor physical therapy will also treat pelvic floor dysfunction. Physical Therapy Order: Patient is ordered for diagnosis N29.2 IRENE (stress urinary incontinence, female), M62.89 Pelvic floor dysfunction and N81.89 Pelvic floor weakness for physical therapy evaluation and treatment. Pelvic floor physical therapist to determine length and frequency of treatment. This treatment is for traditional therapy with or without full Urostym therapy. Patient is interested in urostym in the future as well. She was provided with [facility] IRENE handout and Urostym therapy handout. She will follow up after pelvic floor physical therapy. We discussed she may utilize the online pelvic floor rehab programs available through [facility] prior to start pelvic floor physical therapy. 08/27/2024 Encounter for gynecological examination (general) (routine) without abnormal findings (ICD-10 - Z01.419) 08/27/2024 Encounter for screening for human papillomavirus (HPV) (ICD-10 - Z11.51) 09/12/2024 IRENE (stress urinary incontinence, female) (ICD-10 [...] performed at subsequent visits as indicated. 09/12/2024 Pelvic floor dysfunction in female (ICD-10 [...] performed at subsequent visits as indicated. 09/25/2024 Pelvic floor dysfunction in female (ICD-10 [...] performed at subsequent visits as indicated. 10/04/2024 Pelvic floor dysfunction in female (ICD-10 [...] be performed at subsequent visits as indicated. 08/27/2024 Fecal urgency (ICD-10 - R15.2) We did not have time to discuss in great detail. Evaluation from [facility] will provide more insight. Pelvic floor physical therapy will strengthen pelvic floor and treatment pelvic floor dysfunction what could be contributing to fecal urgency. 09/12/2024 Low back pain, unspecified (ICD-10 - [...] be performed at subsequent visits as indicated. 08/27/2024 Rectal pressure (ICD-10 - R19.8) See plan under Rectal prolapse 10/04/2024 Other chronic pain (ICD-10 - G89.29) [...] be performed at subsequent visits as indicated. 08/27/2024 Dyspareunia, female (ICD-10 - N94.10) Secondary to pelvic floor dysfunction. See plan under IRENE 10/04/2024 Low back pain, unspecified (ICD-10 - [...] be performed at subsequent visits as indicated. 08/27/2024 Pelvic floor weakness (ICD-10 - N81.89) See plan under IRENE 09/25/2024 Fecal urgency (ICD-10 - R15.2) The [...] be performed at subsequent visits as indicated. 08/27/2024 Pelvic floor dysfunction (ICD-10 - M62.89) See plan under IRENE 09/25/2024 Dyspareunia, female (ICD-10 - N94.10) The [...] be performed at subsequent visits as indicated. 08/27/2024 Other Time spent on patient care including - review of previous records - preparation for visit - ordering medications, labs or imaging - documenting visit - discussion of care with another health care process manager if indicated - direct face to face time with patient including obtaining relevant history, physical exam and discussion of plan of care Total time was 64 minutes spent including some or all of above listed required for care of patient talking about diagnosis, treatment and plan of care with the patient as listed in the treatment portion of the note 09/12/2024 Other Treatment Plan: Frequency: weekly or [...] subsequent visits as indicated. Plan Of Treatment Next Appt Details Provider Name:Esther carrera, 2024 08:45:00 AM, [address] [place] [address], [address], [phone], Provider Name:Jeremy barton, 11/26/2024 11:30:00 AM, [address] [place] [address], [phone], Provider Name:Jeremy barton, 12/03/2024 01:45:00 PM, [address] [place] [address], [address], [phone], Provider Name:Jeremy barton, 12/10/2024 01:45:00 PM, [facility], [place] [address], [place], [place], [phone], Provider Name:Jeremy barton, 12/17/2024 01:45:00 PM, [address] [place], [place] [address] [facility], [place] [address], [place], [place], [phone], Provider Name:Esther carrera, 12/24/2024 01:30:00 PM, [address] [place], [place] [address] [facility], [address], [phone], Provider Name:Jeremy barton, 12/31/2024 01:45:00 PM, [address] [place], [place] [address] [facility], [address], [phone], Provider Name:Esther carrera, 01/07/2025 01:30:00 PM, [address] [place], [place] [address] [facility], [address], [phone], Provider Name:Oly Knight, 1 03/12/2024 01:30:00 PM, [address] [place], [address], Insurance Providers Payer Name Payer Address Payer Phone Subscriber Number Group Number Insured Name Patient Relationship to Insured Coverage Start Date Coverage End Date [facility] [address] [place], [place] [id number] Self - patient is the insured Medical (General) History Medical History History ICD Code Depression/ Anxiety Abnormal pap smear Surgical History Surgery Date(Month/Year) Adenoidectomy Central teeth Removal Dilation and curettage after
[2024-10-19 15:42] VITALS: BP 139/80; PULSE 108; RESP 24; TEMP 36.7; O2SAT 98; BMI 19.4
--- NOTE | 2024-10-19 15:52 | ED_ITS ---
HPI - SOB/Dyspnea General Time Seen by Provider: 15:52 Date Seen: 10/19/24 Chief Complaint: Shortness of Breath/Dyspnea Stated Complaint: trouble breathing Time Seen by Provider: 10/19/24 15:46 Source: patient and RN notes reviewed Mode of arrival: ambulatory Limitations: no limitations History of Present Illness HPI Narrative: This 33-year-old female is coming in with shortness of breath that started about 1 month ago. It hit her suddenly. She did travel to [place] via car to see her parents but she had already had symptoms. She feels this can hit her more with activity, maybe more outside. She has tried to be inside in out of the air. Yesterday she did feel worse, air quality was moderate. There have been significant days of poor air quality due to the smoke from [place] . She has not been coughing, has not been sick with anything, no illness preceding this. She is not on any control, no chance for . She has noted some pain along both lower chest wall along the edge of her ribs with breathing today, this did bring her in. She went into see her doctor in clinic on the , was given an albuterol inhaler to try every 4 hours, was given some prednisone. She does feel like the albuterol inhaler will help for an hour Bernard and then will wear off. She does note yesterday and today she consistently has had oxygen saturations in the upper 80s and could not get it over 92%. She did take her albuterol prior to coming in and by the time she got here her oxygenation was improving. At home she had lower oxygenation saturation but by the time she got here, nursing staff got a 97% in triage, her watch was 96% at that time. She has no prior cardiopulmonary history. There is maybe a grandma mom with blood clots but she is not aware of this for sure, there certainly is no known her red tarry disorders. There is no family history any respiratory disorders. 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 She does not do a lot of cardiovascular in the gym but will do a warm up run he usually of about 5 minutes before lifting weights. She tried this once last week and got to about 3 minutes and could not go any further due to shortness of breath, she was so fatigued after that that she was not able to lift weights either. Related Data Home Medications ?Medication ?Instructions ?Recorded ?Confirmed albuterol sulfate 90 mcg/actuation 1 - 2 puff inhalati on Q4H PRN 10/19/24 10/19/24 aerosol inhaler wheezing bupropion HCl 150 mg 24 hr tablet, 150 mg PO DAILY 10/19/24 extended release clonazepam 0.5 mg tablet PO 10/19/24 prednisone 20 mg tablet 20 mg PO DAILY 10/19/2410/04 Previous Rx's ?Medication ?Instructions ?Recorded ondansetron 4 mg disintegrating 4 mg PO Q8H PRN nausea and 05/02/23 tablet vomiting #10 tabs Allergies Allergy/AdvReac Type Severity Reaction Status Date / Time Penicillins Allergy Unknown Rash Verified 10/19/24 15:47 adhesives Allergy Mild rash on Uncoded 11/27/23 09:12 skin Review of Systems Status of ROS: Reports: 6 or more systems reviewed and unremarkable except as noted in History and below [facility] Social History Smoking Status: Never smoker Do you use any of these nicotine containing products: None How often do you have a drink containing alcohol: monthly or less How often do you have six or more drinks on one occasion: Less than monthly AUDIT-C Alcohol total score: 2 Non-prescribed substance use: denies use Exam Const: Vital Signs, click to edit/add: Vital Signs - 24 hr 10/19/24 15:42 Temperature 98.1 F Pulse Rate [Left P ulse Oximeter] 108 H Respiratory Rate 24 Blood Pressure [Ri ght Upper Arm] 139/80 Pulse Oximetry 98 Oxygen Delivery Me thod Room Air This 33-year-old female is alert, interactive, no apparent distress. She is wearing an N95 mask but is able to speak in complete sentences, no hoarseness noted. Sclera clear, pupils are equal and round, conjugate gaze. Neck supple, no jugular venous distension. Lungs are clear, good air entry, no wheezing crackles, good air entry, tachypnea, no accessory muscle use. CV regular rate and rhythm, 2 to 3/6 short systolic murmur, almost feel like there is a click at the end of it. Otherwise normal S1-S2. Abdomen is soft, nontender, nondistended, no organomegaly. She has absolutely no lower extremity edema, no overlying skin changes in her legs. Documenting provider has reviewed patient's vital signs: yes Course Course ED Course: Reviewed with patient my thoughts environmental exposure with the poor air quality, I do agree that this certainly is a possibility. Will look at a D- dimer to ensure no concern for thromboembolic disease. Will get an EKG and tr oponin, venous blood gas in full complement of labs. Without any other prior history in an otherwise healthy 33-year-old female, do think that environmental exposure to poor air quality could be a definite possibility. She does have a murmur that I think would warrant echo outpatient. There is no evidence of any congestive heart failure or fluid overload. Will obtain two view chest x-ray to look at any underlying cardiopulmonary changes on this. Will certainly do CT imaging if indicated while here. Reevaluation(s) Time of Reevaluation #1: 16:59 Reevaluation #1: Patient's oxygen saturation is at 97% on room air, she still wearing her and 95. Did provide her with her chest x-ray report, we reviewed was normal. We have discussed that if her D-dimer is elevated, will be doing chest CT PE protocol. We are waiting lab results at this time. She is feeling fine at this time. Time of Reevaluation #2: 17:15 Reevaluation #2: Have reviewed with patient that her glucose was 172, did confirm with her that I had heard she had not started the prednisone. She states that she actually did started this morning, took 1st dose this morning. We also reviewed that her AST was 65 with 12-35 being normal but other liver enzymes were normal. Completely unclear why this is elevated but does warrant outpatient follow-up. Her D- dimer, troponin, proBNP are all normal. I do not have etiology for her symptoms but do suspect her initial concerns of environmental triggers with the poor air quality certainly could be a plausible explanation. She is safe to discharge to home at this time with continuation of the prednisone and ongoing use of the albuterol. We discussed signs and symptoms for return. Did discuss echo, consideration of PFTs when she has been appropriately off prednisone as next outpatient steps, she can review this with her primary. She has had no hypoxia here. Lowest pulse oximetry I have seen with brief dip is down to 93, she has mostly been consistently 96-97% on room air. Vital Signs Vital signs: Initial Vital Signs Temperature 98.1 F 10/19/24 15:42 Temperature Source Temporal Artery Scan 10/19/24 15:42 Pulse Rate 108 H 10/19/24 15:42 Respiratory Rate 24 10/19/24 15:42 Blood Pressure 139/80 10/19/24 15:42 Blood Pressure Mean 99 10/19/24 15:42 Blood Pressure Position Sitting 10/19/24 15:42 Pulse Oximetry 98 10/19/24 15:42 Oxygen Delivery Method Room Air 10/19/24 15:42 Vital Signs Temperature 98.1 F 10/19/24 15:42 Pulse Rate 108 H 10/19/24 15:42 Respiratory Rate 24 10/19/24 15:42 Blood Pressure 139/80 10/19/24 15:42 Pulse Oximetry 98 10/19/24 15:42 Oxygen Delivery Method Room Air 10/19/24 15:42 Temperature 98.1 F 10/19/24 15:42 Pulse Rate 108 H 10/19/24 15:42 Respiratory Rate 24 10/19/24 15:42 Blood Pressure 139/80 10/19/24 15:42 Pulse Oximetry 98 10/19/24 15:42 Oxygen Delivery Method Room Air 10/19/24 15:42 MDM - SOB/Dyspnea Lab Data Attestation: I reviewed the patient's lab results. Labs: Lab Results 10/19/24 Range/Units 16:03 WBC 9.60 (4.50-11.00) K/uL RBC 4.32 (4.00-5.20) m/uL Hgb 13.3 (12.0-16.0) gm/dL Hct 39.9 (33.0-51.0) % MCV 92 (80-100) fL MCH 31 (26-34) pg MCHC 33 (32-36) gm/dL RDW Coeff of Danette 11.7 (11.5-15.5) % Plt Count 370 (140-440) K/uL Neut % (Auto) 89.9 H (42.0-72.0) % Lymph % (Auto) 6.3 L (20-44) % [place] % (Auto) 2.3 (0.0-11.0) % Eos % (Auto) 0.0 (0.0-7.0) % Baso % (Auto) 0.1 (0.0-3.0) % Neut # (Auto) 8.60 H (1.7-7.0) K/uL Lymph # (Auto) 0.60 L (0.90-2.90) K/uL [place] # (Auto) 0.20 (0.00-0.90) K/UL Eos # (Auto) 0.00 (0.00-0.50) K/uL Baso # (Auto) 0.01 (0.00-0.30) K/uL Abs Immat Gran (auto) 0.13 (0.00-0.30) K/uL Imm/Tot Granulo (auto) 1.4 % D-Dimer Quant (PE/DVT) < 0.27 (0.00-0.50) ug/ml VBG pH 7.430 (7.32-7.43) VBG pCO2 40 (40-50) mmHG VBG pO2 73.6 H (25-47) mmHG VBG HCO3 27 (21-28) mmol/L Sodium 136 (135-149) mmol/L Potassium 4.2 (3.6-5.1) mmol/L Chloride 101 (96-114) mmol/L Carbon Dioxide 31 (20-32) mmol/L Anion Gap 4 L (7-15) mEq/L BUN 13 (5-24) mg/dL Creatinine 0.8 (0.5-1.5) mg/dL Estimated Creat Clear 87.55 Estimated GFR 101 ml/min Glucose 172 H (60-115) mg/dL Calcium 9.4 (8.4-10.6) mg/dL Total Bilirubin 0.4 (0.1-1.5) mg/dL AST 65 H (12-35) U/L ALT 22 (4-35) U/L Alkaline Phosphatase 37 L (40-150) U/L Troponin I < 0.01 (0.01-0.04) ng/mL C-Reactive Protein < 0.5 L (0.5-1.0) mg/dL NT-Pro-B Natriuret Pep 20 (See Note) pg/mL Total Protein 8.0 (6.0-8.3) g/dL Albumin 4.6 (3.3-5.0) g/dL Imaging Data Chest x-ray: Attestation: I have reviewed the pertinent imaging results. My impression: Did visualize chest x-ray, do not appreciate acute pathology. Radiologist's impression: Patient: HECTOR AUSTIN Facility:?[facility] Patient ID:?[id number] Site Patient ID:?[id number]. Site :?[id number] Study:?XRay-Chest 2V-10/19/2024 4:16:54 PM Ordering Physician:?Carrie Hardin Final Report: INDICATION: Shortness of breath for one month TECHNIQUE: Chest radiograph 2 views COMPARISON: None FINDINGS: Mediastinum: The mediastinum is normal in appearance. The heart silhouette is normal in size and morphology. Lung: Both lungs are unremarkable in appearance. No sign of pleural effusion seen. No pneumothorax is identified. Bone and Soft tissue: Unremarkable for age. IMPRESSION: 1. No acute cardiopulmonary disease is seen. Dictated by: Nioclas Carolina MD @ 10/19/2024 16:34:39 (Electronic Signature) ECG Data Attestation: I personally reviewed and interpreted this ECG as follows: (Normal sinus rhythm, 83 beats per minute. No acute ischemic change noted, incomplete right bundle branch block V2.) ECG interpretation date: 10/19/24 ECG interpretation time: 16:40 Prior ECG tracings: not available for review Discharge Plan Discharge Clinical Impression: Shortness of breath, Elevated SGOT (AST), Heart murmur Patient Disposition: Home, Self-Care Condition: Stable Instructions: Heart Murmur (ED), Shortness of Breath (ED) Additional Instructions: You do need to follow-up with your primary care provider as soon as possible next week. I would consider getting an echo done just to ensure no valvular issues that could be contributing. You certainly do not have any evidence of any congestive heart failure or fluid overload on examination or with chest x- ray or labs today. I do think it is reasonable to complete the prednisone and continue with albuterol inhaler as prescribed. Your AST was just mildly elevated, would have that rechecked within the next month with your primary care provider with a full liver panel, consider sooner if ongoing issues. I do not have any plausible explanation why your AST would have any contribution to feeling short of breath at this time. As far as the shortness of breath, pulmonary function testing could be considered at a later time if ongoing issues. If the meantime, if you have significant worsening, develops fever, increasing shortness of breath despite medications being use, do recommend re- evaluation. Activity Level: Activity as Tolerated Prescriptions: No Action ondansetron 4 mg tablet,disintegrating 4 mg PO Q8H PRN (Reason: nausea and vomiting) Qty: 10 0RF prednisone 20 mg tablet 20 mg PO DAILY clonazepam 0.5 mg tablet PO albuterol sulfate 90 mcg/actuation HFA aerosol inhaler 1 - 2 puff INHALATION Q4H PRN (Reason: wheezing) bupropion HCl 150 mg tablet extended release 24 hr 150 mg PO DAILY Follow Up/Referrals: Provider,Not a Local [Primary Care Provider, Family Practice] Stand Alone Forms: [employer] Info Instructions Procedures ABG Interpretation ABG Results: 10/19/24 16:03 VBG pH 7.430 VBG pCO2 40 VBG pO2 73.6 H VBG HCO3 27
--- NOTE | 2024-10-19 16:04 | CRLHL7_ITS ---
For Patients: As a result of the Cures Act, medical imaging exams and procedure reports are released immediately into your electronic medical record. You may view this report before your referring provider. If you have questions, please contact your health care provider. INDICATION: Shortness of breath for one month TECHNIQUE: Chest radiograph 2 views COMPARISON: None FINDINGS: Mediastinum: The mediastinum is normal in appearance. The heart silhouette is normal in size and morphology. Lung: Both lungs are unremarkable in appearance. No sign of pleural effusion seen. No pneumothorax is identified. Bone and Soft tissue: Unremarkable for age. IMPRESSION: 1. No acute cardiopulmonary disease is seen. Dictated by: Nicolas Carolina MD @ 10/19/2024 16:34:39 (Electronically Signed)
[2024-10-19 16:17] LABS: HCO3 VBG 27 mmol/L (21-28); PCO2 VBG 40 mmHG (40-50); PO2 VBG 73.6 mmHG (25-47); pH VBG 7.430 (7.32-7.43)
[2024-10-19 16:19] LABS: Hematocrit 39.9 % (33.0-51.0); Hemoglobin* 13.3 gm/dL (12.0-16.0); Immature Granulocytes Abs Auto 0.13 K/uL (0.00-0.30); Immature Granulocytes Pct Auto 1.4 %; Lymphocytes Absolute Auto 0.60 K/uL (0.90-2.90); Mean Corpuscular HGB Conc 33 gm/dL (32-36); Mean Corpuscular Hemoglobin 31 pg (26-34); Mean Corpuscular Volume 92 fL (80-100); RDW Coefficient of Variation % 11.7 % (11.5-15.5); Red Blood Count 4.32 m/uL (4.00-5.20); White Blood Count* 9.60 K/uL (4.50-11.00)
[2024-10-19 16:21] LABS: Slide Review Reflex No
[2024-10-19 16:41] LABS: Albumin* 4.6 g/dL (3.3-5.0); Chloride* 101 mmol/L (96-114); Sodium* 136 mmol/L (135-149)
[2024-10-19 16:42] LABS: Potassium* 4.2 mmol/L (3.6-5.1)
[2024-10-19 16:44] LABS: Blood Urea Nitrogen* 13 mg/dL (5-24); Creatinine* 0.8 mg/dL (0.5-1.5); Est. Creatinine Clearance* 87.55; Estimated Glomerular Filt Rate 101 ml/min
[2024-10-19 16:45] LABS: Alanine Aminotransferase* 22 U/L (4-35); Alkaline Phosphatase* 37 U/L (40-150); Anion Gap 4 mEq/L (7-15); Aspartate Amino Transferase* 65 U/L (12-35); Bilirubin Total* 0.4 mg/dL (0.1-1.5); Calcium* 9.4 mg/dL (8.4-10.6); Carbon Dioxide* 31 mmol/L (20-32); Glucose* 172 mg/dL (60-115); Total Protein* 8.0 g/dL (6.0-8.3)
[2024-10-19 16:59] LABS: NT Pro B Type NatriureticPept* 20 pg/mL (See Note)
[2024-10-19 17:09] LABS: D Dimer Quantitative* < 0.27 ug/ml (0.00-0.50)
[2024-10-19 17:30] VITALS: O2SAT 96
[2024-10-19 17:41] VITALS: PULSE 89; RESP 22
== END 2024-10-19 17:42 | disposition home or self-care (01) ==
PROVIDERS: Emergency Provider Family Medicine
DX: R01.1 Cardiac murmur, unspecified (principal)
CPT/HCPCS: 36415; 71046; 80053; 82803; 83880; 84484; 85025; 85379; 86140; 93005; 94761; 99284; 99285